=== PATIENT | male | born 1960 | race Caucasian/White ===

== ENCOUNTER 2016-12-07 03:24 | Inpatient (IN) | payer MEDICARE, MEDICAID ==
[2016-12-07] MEDS ORDERED: Albuterol/Ipratropium NEB.SOL* Albuterol 2.5 MG/Ipratropium 0.5 MG 3 ML INH ONE (03:47)
[2016-12-07 04:06] LABS: Hematocrit 29 % (42-52); Hemoglobin 9.7 g/dl (14.0-18.0); Mean Corpuscular HGB Conc 33 g/dl (31-36); Mean Corpuscular Hemoglobin 29 pg (27-31); Mean Corpuscular Volume 88 fL (80-94); Mean Platelet Volume 9 um3 (7.4-10.4); Red Blood Count 3.34 10^6/ul (4.0-5.4); Red Cell Distribution Width 15 % (10.5-15); White Blood Count 7.4 10^3/ul (3.5-10.8)
--- NOTE | 2016-12-07 04:07 | ED ---
Shortness of Breath - HPI Summary HPI Summary: Patient presents for evaluation of shortness of breath. Chronically wears 5 to 6 liters of oxygen, but the last few days has been febrile, more confused than normal, and requiring more oxygen. No allev factors attempted other than to increase the oxygen. History limited by chronic mental disability. - History of Current Complaint Chief Complaint: EDUpperRespComplaint Time Seen by Provider: 12/07/16 03:29 Hx Obtained From: Patient, Family/Lean Engineer, EMS Hx From Patient Unobtainable Due To: Altered Mental Status Onset/Duration: Gradual Onset - Allergy/Home Medications Allergies/Adverse Reactions: Allergies Allergy/AdvReac Type Severity Reaction Status Date / Time Levofloxacin Allergy Rash Verified 08/02/16 10:07 PMH/Surg Hx/FS Hx/Imm Hx Endocrine/Hematology History: Reports: Hx Anemia Denies: Hx Diabetes, Hx Thyroid Disease Cardiovascular History: Reports: Hx Deep Vein Thrombosis Denies: Hx Congestive Heart Failure, Hx Hypertension, Other Cardiovascular Problems/Disorders Respiratory History: Reports: Hx Pneumonia - frequent aspiration pna, Hx Seasonal Allergies - LORATADINE PO, Other Respiratory Problems/Disorders - Left lung deaeration; recurrent respiratory failure Denies: Hx Asthma, Hx Lung Cancer GI History: Reports: Hx Gastroesophageal Reflux Disease, Hx Obstructive Bowel, Other GI Disorders - Ogilivie syndrome, constipation, G-tube, ileus Denies: Hx Ulcer History: Denies: Hx Acute Renal Failure, Hx Renal Disease Musculoskeletal History: Reports: Hx Orthopedic Injury - hx ankle ORIF s/p fall and fracture, Other Musculoskeletal History - ankle fx contractures Sensory History: Denies: Hx Contacts or Glasses, Hx Hearing Aid Opthamlomology History: Denies: Hx Contacts or Glasses Neurological History: Reports: Hx Developmental Delay - profound intellectual disabilitiy, Other Neuro Impairments/Disorders - severe MR Denies: Hx Seizures Psychiatric History: Reports: Hx Anxiety, Hx of Violent Episodes Against Others - grabbing, pinching and scratching, Other Psychiatric Issues/Disorders - psychosis - Cancer History Cancer Type, Location and Year: L lung deaeration (opacification of L lung) Hx Chemotherapy: No Hx Radiation Therapy: No Hx Palliative Cancer Treatment: No - Surgical History Surgery Procedure, Year, and Place: PEG TUBE, MULT BOWEL OBSTRUCTIONS, ORIF L ankle Hx Anesthesia Reactions: No - Immunization History Date of Tetanus Vaccine: Unk Date of Influenza Vaccine: Unk Infectious Disease History: No Infectious Disease History: Reports: Hx of Known/Suspected MRSA, History Other Infectious Disease - positive for strep A Denies: Hx Hepatitis, Hx Human Immunodeficiency Virus (HIV), Traveled Outside the [place] in Last 30 Days - Family History Known Family History: Positive: Unknown - pt lives at assited living facility- no fam hx known - Social History Alcohol Use: None Substance Use Type: Reports: None Hx Tobacco Use: No Smoking Status (MU): Never Smoked Tobacco Have You Smoked in the Last Year: No Review of Systems - ROS Summary Review of Systems Summary: Limited by mental disability. All Other Systems Reviewed And Are Negative: Yes Physical Exam Triage Information Reviewed: Yes Vital Signs On Initial Exam: Initial Vitals Temp Pulse Resp BP Pulse Ox 98.1 F 94 22 117/56 90 12/07/16 03:28 12/07/16 03:28 12/07/16 03:28 12/07/16 03:28 12/07/16 03:28 Vital Signs Reviewed: Yes Completion Of Physical Exam Limited Due To: Other - Mental Disability Appearance: Positive: Well-Appearing, No Pain Distress, Well-Nourished Skin: Positive: Warm, Skin Color Reflects Adequate Perfusion, Dry Eyes: Positive: Normal, EOMI ENT: Positive: Normal ENT inspection, Hearing grossly normal Neck: Positive: Supple, Nontender Respiratory/Lung Sounds: Positive: Decreased Breath Sounds - Diffusely diminished breathsounds without focal crackles, wheezing. Cardiovascular: Positive: Normal, RRR, Pulses are Symmetrical in both Upper and Lower Extremities Abdomen Description: Positive: Nontender, No Organomegaly, Soft Musculoskeletal: Positive: Normal Neurological: Positive: Reflexes Intact, Facial Symmetry. Negative: Facial Droop Diagnostics - Vital Signs Vital Signs Temp Pulse Resp BP Pulse Ox 12/07/16 03:28 98.1 F 94 22 117/56 90 - Laboratory Result Diagrams: 12/07/16 03:40 12/07/16 03:40 Lab Statement: Any lab studies that have been ordered have been reviewed, and results considered in the medical decision making process. Course/Dx - Diagnoses Differential Diagnosis/HQI/PQRI: Positive: Bronchitis, Pneumonia, Other - Primary concern for pneumonia due to fever, confusion, increased hypoxia with behavior changes according to terminal supervisor medicare insurance specialist. Provider Diagnoses: Pneumonia, Hypoxia - Physician Notifications Instructed by Provider To: Admit As Inpatient - Critical Care Time Critical Care Time: 30-74 min Discharge - Discharge Plan Condition: Stable Disposition: ADMITTED TO [facility]
[2016-12-07 04:08] LABS: Add Diff/Slide Review? Slide Review Added
[2016-12-07 04:10] LABS: BUN/Creatinine Ratio 35.3 (8-20); Calcium 9.5 mg/dL (8.6-10.3); EGFR Non-African American 267.5 (>60); Potassium 3.5 mmol/L (3.5-5.0)
[2016-12-07 04:39] LABS: Eosinophils % 2 % (0-6); Immature Granulocytes 7 % (0-9); Neutrophil % 55 % (38-83); RBC Morphology Normal (Normal)
[2016-12-07] MEDS ORDERED: Iohexol 350* (CONTRAST) 500 ML MDV IV ONE (05:09)
[2016-12-07] MEDS ORDERED: Midazolam* 1 MG/ML 2 ML VIAL (2 MG) IV ONE (05:15)
[2016-12-07] MEDS ORDERED: Midazolam* 1 MG/ML 2 ML VIAL (2 MG) ONE (05:16)
[2016-12-07] MEDS ORDERED: NS 0.9% 1000 ML* 2,000 ML IV ONE (06:23)
[2016-12-07] MEDS ORDERED: Piperac/Tazob 3.375 gm in NS* 3.375 GM/100 ML BAG IVPB ONE (06:23)
[2016-12-07] MEDS ORDERED: PIPERACILLIN IVPB ONE (06:30)
[2016-12-07] MEDS ORDERED: NS 0.9% IVPB ONE (06:30)
[2016-12-07] MEDS ORDERED: TAZOBACTAM IVPB ONE (06:30)
[2016-12-07] MEDS ORDERED: Mupirocin 2% CREAM* 15 GM TOPICAL PRN (09:49)
[2016-12-07] MEDS ORDERED: Acetaminophen ADULT LIQ* 650 MG/20.3 ML UDC G TUBE PRN (09:49)
[2016-12-07] MEDS ORDERED: Sodium Phosphate ADULT ENEMA* 118 ml bottle PR PRN (09:49)
[2016-12-07] MEDS ORDERED: Bisacodyl SUPP* 10 MG SUPP PR PRN (09:49)
[2016-12-07] MEDS ORDERED: Magnesium Hydroxide LIQ* 30 ML UDC PEG TUBE PRN (09:49)
[2016-12-07] MEDS ORDERED: Zinc Oxide 20% OINT* 30 GM TUBE TOPICAL PRN (09:49)
[2016-12-07] MEDS ORDERED: NUTRITIONAL SUPPLEMENTS G TUBE SCH ×2 (10:00→14:00)
[2016-12-07] MEDS ORDERED: Piperac/Tazob 3.375 gm in NS* 3.375 GM/100 ML BAG IVPB SCH (10:00)
[2016-12-07] MEDS ORDERED: Mupirocin 2% OINT* TUBE TOPICAL PRN (10:07)
--- NOTE | 2016-12-07 10:42 | RAD ---
INDICATION: Hypoxia COMPARISON: CTA of the chest dated October 07, 2015 TECHNIQUE: Axial source images were acquired following the administration of 78 mL Omnipaque [address] angiographic technique. Coronal and sagittal reconstructed images were constructed and reviewed. FINDINGS: There are no filling defects in the right mainstem or more distal right lung pulmonary arteries. There is irregular filling defect beginning at the left mainstem pulmonary artery extending into the left upper and lower lobar arteries. There is little contrast filling seen in the more distal segments. This appearance could be due to pulmonary embolus or arterial blood mixing as a consequence of reduced arterial flow to a totally consolidated left lung. Similar to the 2014 CT examination there is complete consolidation of the left lung with calcified granulomas. There is infiltration involving the right lower lung as well as compressive atelectasis related to the patient's small right-sided pleural effusion. There is consolidation along the medial aspect of the right upper lobe. The heart is normal in size. There is no evidence of pericardial effusion. There is no evidence of aortic aneurysm or dissection. There is no mediastinal, hilar, or axillary lymphadenopathy. Degenerative changes of the thoracic spine include loss of intervertebral disc height. Limited views of the upper abdomen show no abnormalities. IMPRESSION: 1. Filling defect beginning in the right mainstem pulmonary artery extending into the lobar branches could represent large pulmonary embolus, or alternatively, mixing artifact due to attenuated arterial flow to the patient's chronically, almost completely consolidated left lung. 2. Again seen is consolidation of the left upper and lower lobes, although there is increased foci of air in the small and medium airways relative to the 1213 CT examination. 3. Patchy infiltrate seen in the right lower lobe in addition to a small right-sided pleural effusion. There is also consolidation involving the medial aspect of the right upper lobe. Any of these densities could represent pneumonia versus atelectasis.
--- NOTE | 2016-12-07 11:43 | RAD ---
INDICATION: Hypoxia COMPARISON: Most recent comparison chest x-rays dated September 24, 2016 TECHNIQUE: PA and lateral views of the chest were obtained. FINDINGS: There is complete opacification of the left lung. There is density obscuring the right lung base. There is elevation of the bilateral diaphragm worse in the left than the right. Dilated loops of air-filled bowel beneath the left hemidiaphragm measure up to 9.8 cm in diameter. IMPRESSION: 1. COMPLETE CONSOLIDATION OF THE LEFT LUNG IS UNCHANGED FROM THE PREVIOUS CHEST X-RAY. 2. THERE IS WORSENING AERATION OF THE RIGHT LUNG INCLUDING DENSITY OBSCURING THE RIGHT LUNG BASE AND RIGHT HEMIDIAPHRAGM. 3. PATHOLOGICALLY DILATED LOOPS OF COLON MEASURE UP TO 9.8 CM IN DIAMETER SIMILAR IN APPEARANCE TO THE PREVIOUS CHEST X-RAY.
[2016-12-07] MEDS: Piperac/Tazob 3.375 gm in NS* 3.375 GM/100 ML BAG IVPB SCH ×2 (12:16→19:31)
[2016-12-07] MEDS: Albuterol/Ipratropium NEB.SOL* Albuterol 2.5 MG/Ipratropium 0.5 MG 3 ML INH SCH ×2 (12:56→20:30)
[2016-12-07] MEDS ORDERED: Zinc Oxide 16% PASTE* (Butt Paste) 1 TUBE TOPICAL PRN (13:09)
[2016-12-07] MEDS: Valproic Acid LIQ(*) 250 MG/5 ML UDC G TUBE SCH ×2 (13:54→21:07)
[2016-12-07] MEDS: Rivaroxaban TAB(*) 20 MG TAB PO SCH (13:54)
[2016-12-07] MEDS ORDERED: PROTEIN G TUBE SCH (14:00)
--- NOTE | 2016-12-07 18:54 | HP ---
HISTORY AND PHYSICAL: DATE OF ADMISSION: 12/07/16 TIME OF EVALUATION: 9 a.m. PRIMARY CARE PROVIDER: Dr. Easton Dooley. CHIEF COMPLAINT: "His oxygen was low" as per facility switchboard operator. HISTORY OF PRESENT ILLNESS: Mr. Kinsey is a 56-year-old male with a past medical history of severe intellectual developmental delay, recurrent aspiration pneumonia, chronic left lung atelectasis, iron deficiency anemia, psychosis, rhinitis, asthma, chronic respiratory failure, on 5 L of oxygen at baseline, chronic constipation, Bethlehem syndrome, bilateral DVTs in 2014, who was brought in to the emergency room due to low oxygen levels. The patient is nonverbal and the history is obtained from his switchboard operator at bedside. She states that yesterday during the day, she noticed that his oxygen level was dropping, so they had increased his supplemental oxygen to 6 L. Later on, it was improved and they returned him to 5 L and apparently this happened multiple times during the day. He was also noted to be febrile with a temperature up to 102. He was breathing faster, coughing, and when they increased his oxygen to 6 liters last night, he did not respond, he continued to have a low oxygen saturation, so that prompted an emergency room visit overnight. This appears to be similar to his prior presentations in the past with pneumonia. His caregiver states that the patient has a large bowel movement yesterday and his bowel regimen seems to be working well. PAST MEDICAL HISTORY: 1. Severe intellectual developmental delay. He is nonverbal, has dysphagia and is status post PEG tube placement. 2. Recurrent episodes of aspiration pneumonia. 3. Atelectasis of the left lung, that is chronic. 4. Iron deficiency anemia. 5. Psychosis. 6. Rhinitis. 7. Asthma. 8. Chronic respiratory failure, on home O2 at 5 L. 9. Chronic constipation. 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 11. History of bilateral DVTs in 2014 and the patient is on Xarelto. MEDICATION LIST: 1. Acetaminophen 650 mg via PEG q.6 hours p.r.n. pain or fever. 2. Albuterol/ipratropium 1 nebulized q.6 hours while awake. 3. Vitamin C 500 mg G-tube b.i.d. 4. Benztropine 1 mg G-tube b.i.d. 5. Betamethasone 0.05% topical b.i.d. as needed for rash. 6. Bisacodyl 10 mg per rectum daily p.r.n. constipation. 7. Calcium carbonate 5 mL via G-tube daily. 8. Debrox 6.5% two drops to both ears on Wednesdays. 9. Chlorpromazine 400 mg G-tube at bedtime. 10. Desitin topical b.i.d. as needed for rash. 11. Loratadine 10 mg G-tube daily. 12. Milk of magnesia 30 mL G-tube daily as needed for constipation. 13. Mupirocin 2% topical b.i.d. as needed for rash. 14. Zyprexa 10 mg G-tube daily. 15. Olanzapine 5 mg G-tube in the morning and 10 mg G-tube in the evening. 16. MiraLAX 34 g G-tube daily. 17. Resource Beneprotein 1 dose via G-tube t.i.d. 18. Rivaroxaban 20 mg via G-tube daily. 19. Fleet enema 1 enema per rectum q.3 days as needed for constipation. 20. Valproic acid 10 mL G-tube t.i.d. 21. Jevity 1.5, 2 cans via G-tube at 0800 hours and 1400 hours and 1 can at 2000 hours. ALLERGIES: LEVOFLOXACIN, the patient experienced rash. FAMILY HISTORY: Not obtainable from this nonverbal patient. SOCIAL HISTORY: Unable to obtain due to the patient's severe mental retardation. Surrogate decision maker is Spring Bacon from [facility], phone [phone]. On his last admission on July 2016, the patient was seen by Palliative Care and he was seen by the Surrogate Decision Making Committee and he was made DNR and do not intubate and this is reflected on his current MOLST. REVIEW OF SYSTEMS: Unable to obtain from this nonverbal patient. PHYSICAL EXAMINATION GENERAL: The patient is a middle-aged male, lying in bed, in no acute distress. VITAL SIGNS: Temperature is 98.3, heart rate is 87, respiratory rate is 20, oxygen saturation is 92% on 5 L nasal cannula, blood pressure is 117/57. HEENT: Pupils are equal. Moist mucous membranes. CHEST: Breath sounds present bilaterally, decreased on the left, no added sounds on the right. CVS: Normal S1, S2. Regular rate and rhythm. ABDOMEN: Distended, soft, nontender. Bowel sounds are present. EXTREMITIES: There is mild bilateral lower extremity pitting edema. NEUROLOGIC: He is alert, awake, oriented x3. Interacting with examiner, nonverbal. DIAGNOSTIC STUDIES/LAB DATA: The patient had a CBC that showed WBC of 7.4, hemoglobin of 9.7, hematocrit of 29, platelets of 181 with 64% neutrophils, 19% lymphocytes, and 70% monocytes. Chemistry showed a sodium of 131, potassium of 3.5, chloride of 93, bicarb of 36, BUN of 12, creatinine of 0.3, glucose of 107 , calcium 9.5, lactic acid 1.1. Influenza A and B were negative. Chest x-ray was not officially read yet, but it shows left lung atelectasis with no significant change when compared to his prior one. CTA of the chest was performed and preliminary report is of near complete collapse left lung with fluid secretions in the left bronchial tree similar to a CTA from September 2015. Unlike to prior exam, small amounts of air remained in distal bronchi or within cystic spaces through the lung parenchyma other than being confined to the left apex. Underlying left lung mass or infection not excluded, but volume loss is predominantly atelectatic process. There are multiple calcified granulomas in the left lung base. Relative hypoattenuation in the left lower lobe artery and branches, it is also similar to prior exam and could represent contrast mixing artifact versus a recurrent PE. Followup exam may be helpful to confirm or exclude PE. A small right pleural effusion increased, probable compressive atelectasis of the right lung base with pneumonia felt less likely. This area appeared more consolidated on prior exam , consistent with a prior air space filling process such as pneumonia. Focal atelectasis, scarring more likely than nodule in the right upper lobe, persistent mediastinal lymphadenopathy, and chronic fracture of the distal right clavicle. ASSESSMENT AND PLAN: Mr. Kinsey is a 56-year-old male with a past medical history of severe intellectual developmental delay, recurrent aspiration pneumonia, left lung atelectasis, iron deficiency anemia, psychosis, rhinitis, asthma, chronic respiratory failure, on 5 L of oxygen at home, chronic constipation, Rivas syndrome, bilateral deep venous thrombosis, who presents to the emergency room with reports of fever, worsening of his oxygen saturation , requiring titration of his home O2, admitted with possible pneumonia. 1. [id number] respiratory failure. The patient likely has another episode of aspiration pneumonia to explain his hypoxia. We are going to titrate his oxygen to try and keep his saturation around 90%. 2. Aspiration pneumonia. This has been a chronic issue for this patient. He will be started on Zosyn and we are going to follow his cultures. 3. Possible pulmonary embolism. The patient has known deep venous thrombosis and is on Xarelto, but the preliminary report of his CTA questioned the possibility of pulmonary embolism. I am going to check an echocardiogram looking for signs of increased pressure of the right ventricle, but I believe we should not repeat a CTA for at least 48 hours. The patient does have more lower extremity edema at this point than when I last saw him in July, so I am going to check bilateral lower extremity Dopplers. 4. Constipation, Bethlehem syndrome. We will continue his robust bowel regimen. 5. Psychosis. We will continue Cogentin, Thorazine, and Zyprexa. 6. DVT prophylaxis. The patient has a score of 5 on a DVT Prophylaxis Risk Assessment Guide and he is on Xarelto. 7. Code status. The patient is do not resuscitate and do not intubate. TIME SPENT: Approximately 65 minutes was spent with staff interview, the patient's physical examination, medical records review to complete the admission , more than half this time was spent [id number] with the patient and coordination of care. CC: Dr. Easton Dooley * [id number]/CPS #: [id number] LUCAS
--- NOTE | 2016-12-07 20:20 | RAD ---
HISTORY: Bilateral lower extremity swelling TECHNIQUE: Multiple transverse and longitudinal ultrasound images were obtained of the veins of the bilateral lower extremities using grayscale, color Doppler, and spectral Doppler imaging with and without compression and with augmentation. FINDINGS: VEINS: The common femoral vein, deep femoral vein, femoral vein and popliteal vein are compressible throughout their course, with normal flow on color Doppler imaging and normal response to augmentation on spectral Doppler imaging. The peroneal veins are not visualized. SOFT TISSUES: Grossly normal. No large popliteal fossa cyst was identified. IMPRESSION: No sonographic evidence of deep vein thrombosis.
[2016-12-07] MEDS: Ascorbic Acid TAB* 500 MG G TUBE SCH (21:07)
[2016-12-07] MEDS: chlorproMAZINE TAB* 200 MG G TUBE SCH (21:07)
[2016-12-07] MEDS: Benztropine TAB* 1 MG SCH (21:07)
[2016-12-07] MEDS: OLANzapine TAB*ODT* 10 MG TAB PO SCH (21:07)
[2016-12-07] MEDS: NS 0.9% w/ 40 Meq KCL 1000 ML* 1,000 ML IV SCH (22:02)
[2016-12-08] MEDS: Albuterol/Ipratropium NEB.SOL* Albuterol 2.5 MG/Ipratropium 0.5 MG 3 ML INH SCH ×5 (02:49→20:21)
[2016-12-08] MEDS: Piperac/Tazob 3.375 gm in NS* 3.375 GM/100 ML BAG IVPB SCH ×3 (03:32→20:33)
[2016-12-08] MEDS: NS 0.9% w/ 40 Meq KCL 1000 ML* 1,000 ML IV SCH (06:14)
[2016-12-08 09:30] LABS: Hematocrit 30 % (42-52); Hemoglobin 9.8 g/dl (14.0-18.0); Mean Corpuscular HGB Conc 33 g/dl (31-36); Mean Corpuscular Hemoglobin 29 pg (27-31); Mean Corpuscular Volume 89 fL (80-94); Mean Platelet Volume 8 um3 (7.4-10.4); Red Blood Count 3.36 10^6/ul (4.0-5.4); Red Cell Distribution Width 15 % (10.5-15); White Blood Count 4.2 10^3/ul (3.5-10.8)
[2016-12-08 09:46] LABS: BUN/Creatinine Ratio 17.1 (8-20); Calcium 9.2 mg/dL (8.6-10.3); EGFR African American 277.1 (>60); EGFR Non-African American 215.5 (>60); Potassium 4.6 mmol/L (3.5-5.0)
[2016-12-08] MEDS: Ascorbic Acid TAB* 500 MG G TUBE SCH ×2 (10:19→20:42)
[2016-12-08] MEDS: LORATADINE 10 MG G TUBE SCH (10:19)
[2016-12-08] MEDS: OLANzapine TAB*ODT* 5 MG SCH (10:19)
[2016-12-08] MEDS: Calcium Carbonate LIQ* 1,250 MG/5 ML UDC G TUBE SCH (10:19)
[2016-12-08] MEDS: Polyethylene Glycol 3350* 17 GM PACKET G TUBE SCH (10:19)
[2016-12-08] MEDS: Rivaroxaban TAB(*) 20 MG TAB PO SCH (10:20)
[2016-12-08] MEDS: Benztropine TAB* 1 MG SCH ×2 (10:20→20:43)
--- NOTE | 2016-12-08 12:25 | ECHO ---
Patient: SHANE MALDONADO [facility] Rec#: [id number] : 1960 Date: 12/08/2016 Age: 56y Height: 175.26 cm / 69.0 in Weight: 95.25 kg / 209.9 lbs Sex: M BSA: 2.11 Room#: 332 Admit Date#: 12/07/2016 Type: Inpatient Referring: Jasmyne Amador MD Reading: Suleiman Payne MD Sheet Rock Applicator: Gabrielle Campos CHARU CC: Easton Dooley MD Transthoracic Echocardiogram Indication: Resp Abn. BP: 132/62 HR: 83 Rhythm: NSR Findings History: Mental retardation,recurrent episodes of pneumonia,nonverbal,dysphasia, s/p PEG tube insert,psychosis,asthma,chronic respiratory failure. Technical Comments: The study was technically limited due to the patient's inability to lay in the left lateral decubitus position. Completed at 1200. Left Ventricle: Posterior wall hypertrophy is observed. Global left ventricular wall motion and contractility are within normal limits. There is normal left ventricular systolic function. The estimated ejection fraction is 55-60%. The patient was unable to perform a Valsalva maneuver. Left Atrium: The left atrium is moderately dilated. Right Ventricle: The right ventricle is mildly dilated. The right ventricular global systolic function is mildly to moderately reduced. Right Atrium: The right atrium is moderately dilated. Aortic Valve: The aortic valve is trileaflet. There is a trace of aortic regurgitation. There is no evidence of aortic stenosis. Mitral Valve: The mitral valve leaflets are mildly thickened. There is mild mitral regurgitation. There is no evidence of mitral stenosis. Tricuspid Valve: The tricuspid valve leaflets are normal. There is mild tricuspid regurgitation. There is evidence of mild pulmonary hypertension. There is no tricuspid stenosis. Pulmonic Valve: The pulmonic valve appears normal. There is mild pulmonic regurgitation. There is no pulmonic stenosis. Pericardium: A pericardial fat pad is visualized. Aorta: There is no dilatation of the ascending aorta. There is no dilatation of the aortic arch. There is mild dilatation of the aortic root. Pulmonary Artery: The main pulmonary artery appears normal. Venous: The venous system is not well visualized. Summary: There are no significant changes when compared to the previous study done on 12/10/12 Conclusions Global left ventricular wall motion and contractility are within normal limits. There is normal left ventricular systolic function. The estimated ejection fraction is 55-60%. The right ventricular global systolic function is mildly to moderately reduced. The right atrium is moderately dilated. There is a trace of aortic regurgitation. There is no evidence of aortic stenosis. There is mild mitral regurgitation. There is no evidence of mitral stenosis. There is mild tricuspid regurgitation. There is evidence of mild pulmonary hypertension. There are no significant changes when compared to the previous study done on 12/10/12 Measurements Name Value Normal Range RVIDd (AP) 2D 3.5 cm (0.9 - 2.6) RVDdMajor (2D) 4.8 cm (2.2 - 4.4) RAd ISD 4CH 5.9 cm (3.4 - 4.9) RA (A4C)W 5.7 cm (2.9 - 4.6) IVSd (2D) 1 cm (0.6 - 1) LVPWd (2D) 1.2 cm (0.6 - 1) LVIDd (2D) 4.7 cm (3.6 - 5.4) LVIDs (2D) 3.2 cm - LV FS (2D) 33 % (25 - 45) Aortic Annulus 2.4 cm (1.4 - 2.6) Ao root diameter (2D) 3.7 cm (2.1 - 3.5) Ascending Ao 2.7 cm (2.1 - 3.4) Aortic arch 3.1 cm (1.8 - 3.4) Descending Ao 0.8 cm - LA dimension (AP) 2D 4.7 cm (2.3 - 3.8) LAd ISD 4CH 5.8 cm (2.9 - 5.3) LA ISD 4CH W 5.2 cm (2.5 - 4.5) Name Value Normal Range LA ESV SP 4CH (A/L) 50 ml - LA ESV SP 2CH (A/L) 28 ml - LA ESV BP (A/L) 45 ml - LA ESV BP (A/L) index 21.47 ml/m2 - LA ESV SP 4CH (MOD) 47 ml - LA ESV SP 2CH (MOD) 27 ml - Name Value Normal Range MV E-wave Vmax 1.2 m/sec - MV deceleration time 183 msec - MV A-wave Vmax 1 m/sec - MV E:A ratio 1.1 ratio - LV septal e' Vmax 0.09 m/sec - LV lateral e' Vmax 0.11 m/sec - LV E:e' septal ratio 13.33 ratio - LV E:e' lateral ratio 10.9 ratio - Name Value Normal Range AV Vmax 1.1 m/sec - AV VTI 22.7 cm - AV peak gradient 4.89 mmHg - AV mean gradient 2.47 mmHg - LVOT Vmax 1 m/sec - LVOT VTI 20.4 cm - LVOT peak gradient 3.65 mmHg - LVOT mean gradient 1.71 mmHg - Name Value Normal Range TR Vmax 3 m/sec - TR peak gradient 36 mmHg - RAP 8 mmHg - RVSP 44 mmHg - Name Value Normal Range PV Vmax 1 m/sec - PV peak gradient 4 mmHg -
--- NOTE | 2016-12-08 12:47 | PN ---
Subjective Date of Service: 12/08/16 Interval History: Per nurse patient has been awake all day and recently fell asleep. He slept through my exam only opening his eyes slightly then fell back asleep. [facility] aide is at bedside and states this is his normal. Small BM this morning per nursing. Pt is on 5L [place] which is his baseline oxygen Objective Active Medications: Acetaminophen (Tylenol Adult Liq*) 650 mg G TUBE Q6H PRN PRN Reason: DISCOMFORT Albuterol/Ipratropium (Duoneb Neb.Jany*) 1 neb INH [id number] AWAKE [facility] Last Admin: 12/08/16 10:07 Dose: Not Given Ascorbic Acid (Vitamin C Tab*) 500 mg G TUBE BID [facility] Last Admin: 12/08/16 10:19 Dose: 500 mg Benztropine Mesylate (Cogentin Tab*) 1 mg .SEE ORDER BID [facility] Last Admin: 12/08/16 10:20 Dose: 1 mg Bisacodyl (Dulcolax Supp*) 10 mg KS DAILY PRN PRN Reason: CONSTIPATION Calcium Carbonate (Calcium Carbonate Liq*) 1,250 mg G TUBE DAILY [facility] Last Admin: 12/08/16 10:19 Dose: 1,250 mg Chlorpromazine HCl (Thorazine Tab*) 400 mg G TUBE BEDTIME [facility] Last Admin: 12/07/16 21:07 Dose: 400 mg Potassium Chloride/Sodium Chloride (Ns 0.9% W/ 40 Meq Kcl 1000 Ml*) 1,000 mls @ 125 mls/hr IV PER RATE [facility] Last Admin: 12/08/16 06:14 Dose: 125 mls/hr Piperacillin Sod/Tazobactam Sod (Zosyn 3.375 Gm In Ns Premix*) 3.375 gm in 100 mls @ 25 mls/hr IVPB Q8H [facility] Last Admin: 12/08/16 03:32 Dose: 25 mls/hr Loratadine (Claritin Tab(Nf)) 10 mg G TUBE DAILY [facility] Last Admin: 12/08/16 10:19 Dose: 10 mg Magnesium Hydroxide (Milk Of Magnesia Liq*) 30 ml PEG TUBE 0900 PRN PRN Reason: CONSTIPATION Mupirocin (Bactroban 2 % Oint*) 1 applic TOPICAL BID PRN PRN Reason: WOUND CARE Olanzapine (Zyprexa * Tab Odt) 5 mg .SEE ORDER QAM [facility] Last Admin: 12/08/16 10:19 Dose: 5 mg Olanzapine (Zyprexa *Odt*) 10 mg PO 1999 [facility] Last Admin: 12/07/16 21:07 Dose: 10 mg Polyethylene Glycol/Electrolytes (Miralax*) 34 gm G TUBE DAILY [facility] Last Admin: 12/08/16 10:19 Dose: 34 gm Rivaroxaban (Xarelto (*)) 20 mg PO DAILY [facility] Last Admin: 12/08/16 10:20 Dose: 20 mg Sodium Biphosphate/Sodium Phosphate (Fleet Enema*) 1 bottle KS Q3D PRN PRN Reason: CONSTIPATION Valproic Acid (Depakene Liq(*)) 500 mg G TUBE TID [facility] Last Admin: 12/07/16 21:07 Dose: 500 mg Zinc Oxide (Noah's Butt Paste) 1 applic TOPICAL BID PRN PRN Reason: RASH Vital Signs 12/07/16 12/07/16 12/07/16 12:55 12:58 14:45 Temperature Pulse Rate 85 Respiratory 17 18 Rate Blood Pressure 113/80 (mmHg) O2 Sat by Pulse 97 Oximetry 12/07/16 12/07/16 12/07/16 18:04 19:44 20:00 Temperature 98.1 F 99.5 F Pulse Rate 92 93 Respiratory 20 16 18 Rate Blood Pressure 114/52 130/60 (mmHg) O2 Sat by Pulse 92 94 Oximetry 12/08/16 12/08/16 12/08/16 00:01 03:44 06:53 Temperature 97.7 F 98.3 F 98.1 F Pulse Rate 86 84 87 Respiratory 18 16 20 Rate Blood Pressure 130/57 132/62 152/77 (mmHg) O2 Sat by Pulse 96 97 84 Oximetry 12/08/16 12/08/16 12/08/16 07:20 08:00 11:43 Temperature 97.8 F Pulse Rate 81 Respiratory 20 20 Rate Blood Pressure 135/63 (mmHg) O2 Sat by Pulse 97 100 Oximetry Oxygen Devices in Use Now: Nasal Cannula - 5LNC Appearance: 56 yo parminder with MR laying in bed resting with eyes closed, opens eyes when promted then falls back asleep, NAD Eyes: No Scleral Icterus, PERRLA Ears/Nose/Mouth/Throat: Mucous Membranes Moist, - - poor denition Neck: NL Appearance and Movements; NL JVP Respiratory: Symmetrical Chest Expansion and Respiratory Effort, - - diminished B/L, scattered rhonhi in right lung Cardiovascular: NL Sounds; No Murmurs; No JVD, RRR, No Edema Abdominal: - - large, round, distended abdomen, soft, nontender Extremities: No Edema Skin: No Rash or Ulcers, No Nodules or Sclerosis Neurological: - - alert Lines/Tubes/Other Access: Clean, Dry and Intact Peripheral IV Nutrition: Taking PO's Result Diagrams: 12/08/16 09:19 12/08/16 09:19 Microbiology and Other Data: Microbiology 12/07/16 08:05 Nasal Screen MRSA (PCR)(MICHELLE) - Final Nasal Mrsa Positive Assess/Plan/Problems-Billing Assessment: Mr. Kinsey is a 56 yo male with PMH of severe intellectual delay, recurrent aspiration pneumonia, chornic left atelectasis, iron deficiency anemia , psychosis, chronic constipation, hx of b/l DVTs, asthma, chronic respiratory failure on 5L of oxygen at baseline who was brought to the ED for "low oxygen levels" - Patient Problems (1) Acute and chronic respiratory failure with hypoxia Comment: - suspect secondary to aspiration pneumonia, now back to home oxygen 5L [place] - CTA chest showing possible arterial filling defect, spoke with radiology who thinks this is attenuation from blood mixing and creating an appearance of thrombus, the pt has had this noted in the past but appears a little larger on this scan. TTE showing right ventricular function is mildly-mod reduced but no significant changes from previous echo. Suspect this is not a PE as he is clinically appears to have aspiration pneumonia. Will discuss with heme/onc. plan to continue xarelto (2) Aspiration pneumonia Comment: - Hx of chronic aspiration for years with multiple episodes of aspiration pneumonia. He had a PEG tube placed but continues to aspirate with ororpharyngal secretions. - continue zosyn - Continue chest PT Q4H when awake. (3) Constipation Comment: -[place] syndrome. Continue strict bowel regimen. (4) Psychosis Comment: - Stable- continue cogentin, zyprexa, and thorazine. (5) DNR (do not resuscitate) Comment: MOLST completed on chart (6) DVT (deep venous thrombosis) Comment: - The patient was diagnosed with B/L DVTs 08/2015 - continue Xarelto.
[2016-12-08] MEDS: Valproic Acid LIQ(*) 250 MG/5 ML UDC G TUBE SCH ×3 (12:55→20:50)
[2016-12-08] MEDS ORDERED: Simethicone LIQ* 40 MG/0.6 ML UD ORAL SYRINGE PO PRN (16:40)
[2016-12-08] MEDS: Simethicone TAB* 80 MG TAB.CHEW PO SCH ×2 (18:31→20:42)
[2016-12-08] MEDS: chlorproMAZINE TAB* 200 MG G TUBE SCH (20:42)
[2016-12-08] MEDS: OLANzapine TAB*ODT* 10 MG TAB PO SCH (20:42)
[2016-12-09] MEDS: Albuterol/Ipratropium NEB.SOL* Albuterol 2.5 MG/Ipratropium 0.5 MG 3 ML INH SCH ×2 (01:23→07:32)
[2016-12-09] MEDS: Piperac/Tazob 3.375 gm in NS* 3.375 GM/100 ML BAG IVPB SCH ×2 (03:57→11:38)
[2016-12-09 06:05] LABS: Hematocrit 29 % (42-52); Hemoglobin 9.8 g/dl (14.0-18.0); Mean Corpuscular HGB Conc 34 g/dl (31-36); Mean Corpuscular Hemoglobin 29 pg (27-31); Mean Corpuscular Volume 88 fL (80-94); Mean Platelet Volume 8 um3 (7.4-10.4); Red Blood Count 3.34 10^6/ul (4.0-5.4); Red Cell Distribution Width 15 % (10.5-15); White Blood Count 4.9 10^3/ul (3.5-10.8)
[2016-12-09 06:21] LABS: BUN/Creatinine Ratio 26.2 (8-20); Calcium 9.1 mg/dL (8.6-10.3); EGFR African American 269.5 (>60); EGFR Non-African American 209.6 (>60); Potassium 4.5 mmol/L (3.5-5.0)
[2016-12-09 08:24] VITALS: BP 131/63
[2016-12-09] MEDS ORDERED: NS 0.9% 1000 ML* 1,000 ML IV SCH (08:30)
[2016-12-09] MEDS ORDERED: Saliva Substitute (NF) 1 SPRAY BTL MT SCH (09:00)
[2016-12-09] MEDS: Rivaroxaban TAB(*) 20 MG TAB PO SCH (09:40)
[2016-12-09] MEDS: LORATADINE 10 MG G TUBE SCH (09:40)
[2016-12-09] MEDS: OLANzapine TAB*ODT* 5 MG SCH (09:40)
[2016-12-09] MEDS: Calcium Carbonate LIQ* 1,250 MG/5 ML UDC G TUBE SCH (09:40)
[2016-12-09] MEDS: Ascorbic Acid TAB* 500 MG G TUBE SCH (09:40)
[2016-12-09] MEDS: Benztropine TAB* 1 MG SCH (09:40)
[2016-12-09] MEDS: Simethicone TAB* 80 MG TAB.CHEW PO SCH (09:40)
[2016-12-09] MEDS: Valproic Acid LIQ(*) 250 MG/5 ML UDC G TUBE SCH (09:40)
[2016-12-09] MEDS: Polyethylene Glycol 3350* 17 GM PACKET G TUBE SCH (09:41)
--- NOTE | 2016-12-09 10:35 | DCNOTE ---
Subjective Date of Service: 12/09/16 Interval History: Patient is awake and alert this morning, some interaction. NAD. Appears comfortable. per [place] BRADLEY he appears at his baseline. no increased O2 requirements. 2 large BMs overnight. Tolerating tube feedings. No fevers or chills. Per nursing staff he got OOB with 2 assist and gait belt and used commode. Objective Active Medications: Acetaminophen (Tylenol Adult Liq*) 650 mg G TUBE Q6H PRN PRN Reason: DISCOMFORT Albuterol/Ipratropium (Duoneb Neb.Jany*) 1 neb INH [id number] AWAKE [facility] Last Admin: 12/09/16 07:32 Dose: 1 neb Ascorbic Acid (Vitamin C Tab*) 500 mg G TUBE BID [facility] Last Admin: 12/09/16 09:40 Dose: 500 mg Benztropine Mesylate (Cogentin Tab*) 1 mg .SEE ORDER BID [facility] Last Admin: 12/09/16 09:40 Dose: 1 mg Bisacodyl (Dulcolax Supp*) 10 mg GA DAILY PRN PRN Reason: CONSTIPATION Calcium Carbonate (Calcium Carbonate Liq*) 1,250 mg G TUBE DAILY [facility] Last Admin: 12/09/16 09:40 Dose: 1,250 mg Chlorpromazine HCl (Thorazine Tab*) 400 mg G TUBE BEDTIME [facility] Last Admin: 12/08/16 20:42 Dose: 400 mg Piperacillin Sod/Tazobactam Sod (Zosyn 3.375 Gm In Ns Premix*) 3.375 gm in 100 mls @ 25 mls/hr IVPB Q8H [facility] Last Admin: 12/09/16 03:57 Dose: 25 mls/hr Loratadine (Claritin Tab(Nf)) 10 mg G TUBE DAILY [facility] Last Admin: 12/09/16 09:40 Dose: 10 mg Magnesium Hydroxide (Milk Of Magnesia Liq*) 30 ml PEG TUBE 0900 PRN PRN Reason: CONSTIPATION Last Admin: 12/08/16 15:47 Dose: 30 ml Mupirocin (Bactroban 2 % Oint*) 1 applic TOPICAL BID PRN PRN Reason: WOUND CARE Olanzapine (Zyprexa * Tab Odt) 5 mg .SEE ORDER QAM [facility] Last Admin: 12/09/16 09:40 Dose: 5 mg Olanzapine (Zyprexa *Odt*) 10 mg PO 2000 [facility] Last Admin: 12/08/16 20:42 Dose: 10 mg Polyethylene Glycol/Electrolytes (Miralax*) 34 gm G TUBE DAILY [facility] Last Admin: 12/09/16 09:41 Dose: Not Given Rivaroxaban (Xarelto (*)) 20 mg PO DAILY [facility] Last Admin: 12/09/16 09:40 Dose: 20 mg Saliva Substitute (Biotene Moisturizing Mouth (Nf)) 1 spray MT DAILY [facility] PRN Reason: Protocol Last Admin: 12/09/16 10:20 Dose: Not Given Simethicone (Mylicon*) 80 mg PO TID [facility] Last Admin: 12/09/16 09:40 Dose: 80 mg Sodium Biphosphate/Sodium Phosphate (Fleet Enema*) 1 bottle GA Q3D PRN PRN Reason: CONSTIPATION Last Admin: 12/08/16 18:31 Dose: 1 bottle Valproic Acid (Depakene Liq(*)) 500 mg G TUBE TID [facility] Last Admin: 12/09/16 09:40 Dose: 500 mg Zinc Oxide (Noah's Butt Paste) 1 applic TOPICAL BID PRN PRN Reason: RASH Vital Signs 12/08/16 12/08/16 12/08/16 11:43 15:45 16:34 Temperature 97.8 F 97.2 F Pulse Rate 81 79 85 Respiratory 20 24 18 Rate Blood Pressure 135/63 127/68 (mmHg) O2 Sat by Pulse 100 94 98 Oximetry 12/08/16 12/08/16 12/08/16 19:51 20:00 20:22 Temperature 97.9 F Pulse Rate 90 90 Respiratory 18 18 Rate Blood Pressure 138/63 (mmHg) O2 Sat by Pulse 94 98 Oximetry 12/08/16 12/08/16 12/09/16 20:29 23:52 04:01 Temperature 97.2 F 98.1 F Pulse Rate 90 82 82 Respiratory 16 16 Rate Blood Pressure 117/63 119/58 (mmHg) O2 Sat by Pulse 98 97 97 Oximetry 12/09/16 12/09/16 12/09/16 07:35 07:38 08:03 Temperature 98.5 F Pulse Rate 88 87 Respiratory 16 17 20 Rate Blood Pressure 131/63 (mmHg) O2 Sat by Pulse 96 94 Oximetry Oxygen Devices in Use Now: Nasal Cannula - 5LNC Appearance: 56 yo MR male sitting up in bed awake and alert in NAD - interacting Eyes: No Scleral Icterus, PERRLA Ears/Nose/Mouth/Throat: Mucous Membranes Moist, - - poor dentition Neck: NL Appearance and Movements; NL JVP, Trachea Midline Respiratory: Symmetrical Chest Expansion and Respiratory Effort, Clear to Auscultation Cardiovascular: NL Sounds; No Murmurs; No JVD, RRR, No Edema Abdominal: NL Sounds; No Tenderness; No Distention, - - big, round, soft. NL BS , no guarding. Extremities: No Edema, No Clubbing, Cyanosis Skin: No Rash or Ulcers, No Nodules or Sclerosis Neurological: - - alert Lines/Tubes/Other Access: Clean, Dry and Intact Peripheral IV Nutrition: Taking PO's Result Diagrams: 12/09/16 05:40 12/09/16 05:40 Microbiology and Other Data: Microbiology 12/07/16 08:05 Nasal Screen MRSA (PCR)(MICHELLE) - Final Nasal Mrsa Positive Assess/Plan/Problems-Billing Assessment: Mr. Kinsey is a 56 yo male with PMH of severe intellectual delay, recurrent aspiration pneumonia, chornic left atelectasis, iron deficiency anemia , psychosis, chronic constipation, hx of b/l DVTs, asthma, chronic respiratory failure on 5L of oxygen at baseline who was brought to the ED for "low oxygen levels" - Patient Problems (1) Acute and chronic respiratory failure with hypoxia Comment: - suspect secondary to aspiration pneumonia/pneumonitis, back to home oxygen 5L NC on admisison - no increased oxygen requirements throughout hospitalization - CTA chest showing possible arterial filling defect, spoke with radiology who thinks this is attenuation from blood mixing and creating an appearance of thrombus, the pt has had this noted in the past but appears a little larger on this scan. Low suspicion for PE. Reveiwed with Dr. Stockton (side consult) who agrees there is a low suspicion of xarelto failure with the 2015 DVT now not noted on repeat dopple LE this admisison. TTE showing right ventricular function is mildly-mod reduced but no significant changes from previous echo. plan to continue xarelto Stable for DC to home. Plan for Augmentin at DC, f/u with PCP. (2) Aspiration pneumonia Comment: - Hx of chronic aspiration for years with multiple episodes of aspiration pneumonia. He had a PEG tube placed but continues to aspirate with ororpharyngal secretions. - DC home on augmentin (3) Constipation Comment: -[place] syndrome. Continue strict bowel regimen. 2 large BM overnight (4) Psychosis Comment: - Stable- continue cogentin, zyprexa, and thorazine. (5) DNR (do not resuscitate) Comment: MOLST completed on chart (6) DVT (deep venous thrombosis) Comment: - The patient was diagnosed with B/L DVTs 08/2015 which are now resolved- continue Xarelto. Status and Disposition: stable for DC to back to [facility]
--- NOTE | 2016-12-10 20:30 | DS ---
DISCHARGE SUMMARY: DATE OF ADMISSION: 12/07/16 DATE OF DISCHARGE: 12/09/16 PROVIDER: Marlee Borja NP ATTENDING PHYSICIAN: Dr. Branham * (report dictated by Marlee Borja NP). PRIMARY CARE PROVIDER: Dr. Easton Dooley. PRIMARY DIAGNOSES: 1. Hypoxia thought to be secondary to aspiration. 2. Possible aspiration pneumonitis/pneumonia. 3. Severe intellectual developmental delay, who is nonverbal, has had significant dysphagia and is status post PEG tube placement. SECONDARY DIAGNOSES: 1. Chronic constipation with [place] syndrome. 2. History of bilateral deep venous thrombosis in 2014, on Xarelto. 3. Recurrent episodes of aspiration pneumonia. 4. Atelectasis in the left lung that is chronic. 5. Iron deficiency anemia. 6. Psychosis. 7. Rhinitis. 8. Asthma. 9. Chronic respiratory failure, on home O2 at 5 L. DISCHARGE MEDICATIONS: 1. Acetaminophen 650 mg via PEG tube, q.6 hours p.r.n. pain or fever. 2. Albuterol/ipratropium 1 nebulizer q.6 hours while awake. 3. Vitamin C 500 mg G-tube b.i.d. 4. Benztropine 1 mg G-tube b.i.d. 5. Betamethasone 0.05% topical b.i.d. as needed for rash. 6. Bisacodyl 10 mg per rectum daily p.r.n. constipation. 7. Calcium carbonate 5 mL via G-tube daily. 8. Debrox 6.5% two drops to both ears on Wednesdays. 9. Chlorpromazine 400 mg G-tube at bedtime. 10. Desitin topical b.i.d. as needed for rash. 11. Loratadine 10 mg G-tube daily. 12. Milk of magnesia 30 mL G-tube daily as needed for constipation. 13. Mupirocin 2% topical b.i.d. as needed for rash. 14. Zyprexa 10 mg p.o. daily. 15. MiraLAX 34 g G-tube daily. 16. Olanzapine 5 mg G-tube in the morning and 10 mg G-tube in the evening. 17. Resource Beneprotein 1 dose via G-tube t.i.d. 18. Xarelto 20 mg via G-tube daily. 19. Fleet Enema, 1 enema per rectum q.3 days as needed for constipation. 20. Valproic acid 10 mL G-tube t.i.d. 21. Jevity 1.5, two cans via G-tube at 0800 hours and 1400 hours and one can 2000 hours. ALLERGIES: LEVOFLOXACIN, the patient experiences rash. DISCHARGE SUMMARY: Please see history and physical by Dr. Garcia for full admission details, but in summary, Mr. Kinsey is a 56-year-old male with a severe intellectual developmental delay, recurrent aspiration pneumonia, chronic left lung atelectasis with chronic respiratory failure, on 5 L of oxygen at baseline, who presented to the emergency department with concern for "low oxygen levels." The patient is nonverbal and the history was obtained from his caregiver who was at the bedside on admission. It was reported that day prior to admission, it was noticed that his oxygen level was dropping so they increased his oxygen to 6 L. Later on, he had improved and he returned to 5 L and apparently this happened multiple times throughout the day. He was noted to be febrile with temperature of 102 and to be breathing faster, coughing , and when they increased his oxygen to 6 L that evening, he did not respond and continued to have low oxygen saturations and was brought to the emergency department for evaluation. This appeared to be similar to his prior presentations in the past with pneumonia. The patient was admitted to the medical unit. The patient was tested negative for both influenza A and B. His chest x-ray showed left lung atelectasis with no significant change when compared to prior. He did undergo a CT of the chest, which showed "1. Filling defect beginning in the right main stem pulmonary artery extending into the lobar branches, could represent large pulmonary embolus, or alternatively, mixing artifact due to attenuation arterial flow to the patient chronically, almost completely consolidated left lung. 2. Again seen is consolidation in the left upper and lower lobes, although there is increased foci airways relative to the October 07 CT examination. 3. Patchy infiltrate seen in the right lower lobe, in addition to small right- sided pleural effusion. There is also consolidation involving the medial aspect of the right upper lobe. Any of these could represent pneumonia versus atelectasis." Due to this CTA reading, I discussed the CTA with radiologist, Dr. Vázquez, who originally read the report. He reports that most likely, these findings are attenuation, which is artifact with blood mixing, due to the patient's underlying chronic disease and this imaging is similar to what was seen on previous CAT scans. Clinically, the patient does not appear to have a pulmonary embolism and he is on Xarelto. The patient underwent a venous Doppler study of his lower extremities as he did note to have DVTs in 2014 in which he was then placed on Xarelto. The Doppler shows no evidence of DVTs. I side-consult with chair mechanic, Dr. Stockton, who states that she does not believe this to be Xarelto failure and since the patient has chronic underlying lung disease and similar findings on previous CTAs, she suggests not stopping the Xarelto. Clinically, I have low suspicion for pulmonary embolism. The patient is not tachypneic or hypoxic. He has actually stayed on his home oxygenation of 5 L throughout hospitalization. He has had no leukocytosis and has remained afebrile. My suspicion is that he aspirated and had aspiration pneumonitis/ possible pneumonia. He had been treated with Zosyn and has done well throughout his hospitalization. The patient will be switched to Augmentin on discharge. The patient appears to be at his baseline yesterday and today and is stable for discharge back to [facility]. Please note the patient also underwent a transthoracic echocardiogram of his heart to look for right-sided heart failure as this could be seen with the large pulmonary embolism. There was no noted right-sided heart failure. The report read "global left ventricular wall motion and contractility are within normal limits. There is normal left ventricular systolic function. The estimated ejection fraction is 55% to 60%. The right ventricular global systolic function is mildly to moderately reduced. Right atrium is moderately dilated. There is a trace of aortic regurgitation. There is no evidence of aortic stenosis. There is mild mitral regurgitation. There is no evidence of mitral stenosis. There is mild tricuspid regurgitation. There is evidence of mild pulmonary hypertension. There are no significant changes when compared to the previous study done on 12/10/12." The patient has been continued on strict bowel regimen. He did have two large bowel movements overnight. In regards to the patient's chronic aspiration most likely secondary to oropharyngeal secretions as the patient does not take p.o. and has a PEG tube placed. It will be probably beneficial to not allow the patient to lie flat and be propped up on pillows with his head above 20 degree, if not 40-degree angle. DISCHARGE PLAN: The patient is stable for discharge back to [facility]. Follow up with PCP within this week. TIME SPENT: Approximately 60 minutes was spent on this discharge. MARLEE BORJA NP CC: Dr. Easton Dooley * [id number]/CPS #: [id number] [facility]
== END 2016-12-09 12:55 | DRG 177 ==
LOC: ED 03:24 → SSU 07:02
PROVIDERS: ADMIT Internal Medicine; ATTEND Hospitalist
DX: J69.0 Pneumonitis due to inhalation of food and vomit (principal); J96.21 Acute and chronic respiratory failure with hypoxia; K56.69 Other intestinal obstruction; R13.10 Dysphagia, unspecified; Z99.81 Dependence on supplemental oxygen; I27.2 Other secondary pulmonary hypertension; J98.11 Atelectasis; Z93.1 Gastrostomy status; F81.9 Developmental disorder of scholastic skills, unspecified; K59.09 Other constipation; Z86.718 Personal history of other venous thrombosis and embolism; F29 Unspecified psychosis not due to a substance or known physiological condition; J45.909 Unspecified asthma, uncomplicated; I08.3 Combined rheumatic disorders of mitral, aortic and tricuspid valves; Z88.1 Allergy status to other antibiotic agents; K21.9 Gastro-esophageal reflux disease without esophagitis; F41.9 Anxiety disorder, unspecified; Z66 Do not resuscitate; F79 Unspecified intellectual disabilities; D50.9 Iron deficiency anemia, unspecified; Z79.01 Long term (current) use of anticoagulants
CPT/HCPCS: 36415; 71020; 71275; 80048; 83605; 85025; 87040; 87502; 87641; 93306; 93970; 94640; 94667; A9270-GY; J2250; J2543; Q9967

== ENCOUNTER 2017-01-13 03:36 | Inpatient (IN) | payer MEDICARE, MEDICAID ==
[2017-01-13 04:07] LABS: Hematocrit 31 % (42-52); Mean Corpuscular HGB Conc 32 g/dl (31-36); Mean Corpuscular Hemoglobin 29 pg (27-31); Mean Corpuscular Volume 88 fL (80-94); Mean Platelet Volume 9 um3 (7.4-10.4); Red Blood Count 3.49 10^6/ul (4.0-5.4); Red Cell Distribution Width 15 % (10.5-15); White Blood Count 4.7 10^3/ul (3.5-10.8)
[2017-01-13 04:19] LABS: Albumin 3.7 g/dL (3.2-5.2); BUN/Creatinine Ratio 32.5 (8-20); Calcium 9.6 mg/dL (8.6-10.3); EGFR African American 285.2 (>60); EGFR Non-African American 221.7 (>60); Globulin 4.5 g/dL (2-4); Potassium 3.9 mmol/L (3.5-5.0); Total Bilirubin 0.4 mg/dL (0.2-1.0); Total Protein 8.2 g/dL (6.4-8.9)
[2017-01-13 04:21] LABS: Troponin I 0.01 ng/mL (<0.04)
[2017-01-13] MEDS ORDERED: Piperac/Tazob 3.375 gm in NS* 3.375 GM/100 ML BAG IVPB ONE (04:21)
[2017-01-13] MEDS ORDERED: Vancomycin(*) 1,000 MG in NS 0.9% 250 ML* 250 ML IVPB ONE (04:21)
--- NOTE | 2017-01-13 04:35 | ED ---
I, Loco,Augustus, scribed for Alon Dimas MD on 01/13/17 at 0409 . Shortness of Breath - HPI Summary HPI Summary: LEVEL 5 CAVEAT secondary to profound MR This 56 y/o male presents to ED via [facility] ambulance from [facility] after pt was noted to have difficulty breathing. Time of onset is unknown. Pt poorly tolerated EMS CPAP en route. 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 Pt is DNR. Pt was last seen at [facility] for aspiration PNA on 12/07/2016. Respiratory therapist paged for suction. - History of Current Complaint Time Seen by Provider: 01/13/17 03:44 Hx Obtained From: EMS, Medical Records Onset/Duration: Sudden Onset, Still Present Dyspnea At: Rest Aggrevating Factors: Nothing Alleviating Factors: Nothing Associated Signs & Symptoms: Negative - Allergy/Home Medications Allergies/Adverse Reactions: Allergies Allergy/AdvReac Type Severity Reaction Status Date / Time Levofloxacin Allergy Rash Verified 01/13/17 04:56 Home Medications: Home Medications Artificial Saliva [Biotene Oralbalance Dry M] 1 gel MT 0800 01/13/17 [History Confirmed 01/13/17] Simethicone CHEW TAB* [Mylicon*] 80 mg G TUBE AC 01/13/17 [History Confirmed ] PMH/Surg Hx/FS Hx/Imm Hx Endocrine/Hematology History: Reports: Hx Anemia Denies: Hx Diabetes, Hx Thyroid Disease Cardiovascular History: Reports: Hx Deep Vein Thrombosis Denies: Hx Congestive Heart Failure, Hx Hypertension, Other Cardiovascular Problems/Disorders Respiratory History: Reports: Hx Pneumonia - frequent aspiration pna, Hx Seasonal Allergies - LORATADINE PO, Other Respiratory Problems/Disorders - Left lung deaeration; recurrent respiratory failure Denies: Hx Asthma, Hx Lung Cancer GI History: Reports: Hx Gastroesophageal Reflux Disease, Hx Obstructive Bowel, Other GI Disorders - helga syndrome Denies: Hx Ulcer History: Denies: Hx Acute Renal Failure, Hx Dialysis, Hx Renal Disease Musculoskeletal History: Reports: Hx Orthopedic Injury - hx ankle ORIF s/p fall and fracture, Other Musculoskeletal History - ankle fx contractures Sensory History: Denies: Hx Contacts or Glasses, Hx Hearing Aid Opthamlomology History: Denies: Hx Contacts or Glasses Neurological History: Reports: Hx Developmental Delay - profound intellectual disabilitiy, Other Neuro Impairments/Disorders - severe MR Denies: Hx Seizures Psychiatric History: Reports: Hx Anxiety, Hx of Violent Episodes Against Others - grabbing, pinching and scratching, Other Psychiatric Issues/Disorders - psychosis - Cancer History Cancer Type, Location and Year: L lung deaeration (opacification of L lung) Hx Chemotherapy: No Hx Radiation Therapy: No Hx Palliative Cancer Treatment: No - Surgical History Surgery Procedure, Year, and Place: PEG TUBE, MULT BOWEL OBSTRUCTIONS, ORIF L ankle Hx Anesthesia Reactions: No - Immunization History Date of Tetanus Vaccine: Unk Date of Influenza Vaccine: Unk Infectious Disease History: Reports: Hx of Known/Suspected MRSA, History Other Infectious Disease - positive for strep A Denies: Hx Hepatitis, Hx Human Immunodeficiency Virus (HIV) - Family History Known Family History: Positive: Unknown - LEVEL 5 CAVEAT secondary to profound MR - Social History Lives: Assisted Living - [facility] Alcohol Use: None Hx Substance Use: No Substance Use Type: Reports: None Hx Tobacco Use: No Smoking Status (MU): Never Smoked Tobacco Have You Smoked in the Last Year: No Review of Systems - ROS Summary Review of Systems Summary: LEVEL 5 CAVEAT secondary to profound MR. Negative: Fever Positive: Shortness Of Breath All Other Systems Reviewed And Are Negative: No Physical Exam Triage Information Reviewed: Yes Vital Signs On Initial Exam: Initial Vitals Temp Pulse Resp BP Pulse Ox 99.8 F 104 56 139/59 88 01/13/17 03:40 01/13/17 03:40 01/13/17 03:40 01/13/17 03:40 01/13/17 03:40 Vital Signs Reviewed: Yes Completion Of Physical Exam Limited Due To: Extremis Appearance: Positive: Ill-Appearing Skin: Positive: Warm Head/Face: Positive: Normal Head/Face Inspection Eyes: Positive: BORIS ENT: Positive: Hearing grossly normal Respiratory/Lung Sounds: Positive: Other - marked decresed coarse bs left lung , tacypneic Cardiovascular: Positive: Tachycardia Abdomen Description: Positive: Soft Diagnostics - Vital Signs Vital Signs Temp Pulse Resp BP Pulse Ox 01/13/17 04:17 34 01/13/17 04:00 103 45 93 01/13/17 03:49 104 50 91 01/13/17 03:48 104 58 139/59 88 01/13/17 03:45 99.8 F 105 54 139/57 90 01/13/17 03:40 99.8 F 104 56 139/59 88 - Laboratory Lab Results: Lab Results 01/13/17 01/13/17 01/13/17 Range/Units 03:41 03:41 03:41 WBC 4.7 (3.5-10.8) 10^3/ul RBC 3.49 L (4.0-5.4) 10^6/ul Hgb 10.0 L (14.0-18.0) g/dl Hct 31 L (42-52) % MCV 88 (80-94) fL MCH 29 (27-31) pg MCHC 32 (31-36) g/dl RDW 15 (10.5-15) % Plt Count 148 L (150-450) 10^3/ul MPV 9 (7.4-10.4) um3 Neut % (Auto) 70.7 (38-83) % Lymph % (Auto) 13.0 L (25-47) % [place] % (Auto) 15.5 H (1-9) % Eos % (Auto) 0.7 (0-6) % Baso % (Auto) 0.1 (0-2) % Absolute Neuts (auto) 3.3 (1.5-7.7) 10^3/ul Absolute Lymphs (auto) 0.6 L (1.0-4.8) 10^3/ul Absolute Monos (auto) 0.7 (0-0.8) 10^3/ul Absolute Eos (auto) 0 (0-0.6) 10^3/ul Absolute Basos (auto) 0 (0-0.2) 10^3/ul Absolute Nucleated RBC 0.01 10^3/ul Nucleated RBC % 0.1 Sodium 136 (133-145) mmol/L Potassium 3.9 (3.5-5.0) mmol/L Chloride 95 L (101-111) mmol/L Carbon Dioxide 32 (22-32) mmol/L Anion Gap 9 (2-11) mmol/L BUN 13 (6-24) mg/dL Creatinine 0.40 L (0.67-1.17) mg/dL Est GFR ( Amer) 285.2 (>60) Est GFR (Non-Af Amer) 221.7 (>60) BUN/Creatinine Ratio 32.5 H (8-20) Glucose 124 H (70-100) mg/dL Lactic Acid 3.2 H* (0.5-2.0) mmol/L Calcium 9.6 (8.6-10.3) mg/dL Total Bilirubin 0.40 (0.2-1.0) mg/dL AST 21 (13-39) U/L ALT 17 (7-52) U/L Alkaline Phosphatase 91 (34-104) U/L Troponin I 0.01 (<0.04) ng/mL Total Protein 8.2 (6.4-8.9) g/dL Albumin 3.7 (3.2-5.2) g/dL Globulin 4.5 H (2-4) g/dL Albumin/Globulin Ratio 0.8 L (1-3) Result Diagrams: 01/13/17 03:41 01/13/17 03:41 Lab Statement: Any lab studies that have been ordered have been reviewed, and results considered in the medical decision making process. - Radiology CXR Radiology Interpretation Completed By: ED Physician - See EMR for official reading Course/Dx - Diagnoses Provider Diagnoses: Pneumonia - Physician Notifications Discussed Care of Patient With: Dr. Loaiza (Hospitalist) at 0540 AM Time Discussed With Above Provider: 05:40 Instructed by Provider To: Admit As Inpatient - Critical Care Time Critical Care Time: 30-74 min Discharge - Discharge Plan Condition: Fair Disposition: ADMITTED TO [facility] documentation as recorded by the Loco silveira Soohyun accurately reflects the service I personally performed and the decisions made by , Alon Dimas MD.
[2017-01-13] MEDS ORDERED: Bisacodyl SUPP* 10 MG SUPP PR PRN (06:27)
[2017-01-13] MEDS ORDERED: Sodium Phosphate ADULT ENEMA* 118 ml bottle PR PRN (06:27)
[2017-01-13] MEDS ORDERED: Zinc Oxide 16% PASTE* (Butt Patse) 1 TUBE TOPICAL PRN (06:27)
[2017-01-13] MEDS ORDERED: Mupirocin 2% CREAM* 15 GM TOPICAL PRN (06:27)
[2017-01-13] MEDS ORDERED: Magnesium Hydroxide LIQ* 30 ML UDC PEG TUBE PRN (06:27)
[2017-01-13] MEDS ORDERED: NUTRITIONAL SUPPLEMENTS G TUBE SCH ×2 (06:30→08:00)
[2017-01-13] MEDS ORDERED: Morphine INJ* 4 MG/ML 1 ML SYRINGE ONE ×2 (06:36→22:34)
[2017-01-13] MEDS: Morphine INJ* 4 MG/ML 1 ML SYRINGE IV PRN ×3 (06:38→22:37)
[2017-01-13] MEDS ORDERED: Acetaminophen ADULT LIQ* 650 MG/20.3 ML UDC ONE (06:47)
[2017-01-13] MEDS: Acetaminophen ADULT LIQ* 650 MG/20.3 ML UDC PO PRN ×2 (06:48→15:53)
[2017-01-13] MEDS ORDERED: Acetaminophen SUPP* 650 MG SUPP PR PRN (07:05)
--- NOTE | 2017-01-13 07:59 | RAD ---
INDICATION: Shortness of breath. COMPARISON: Comparison is made with prior CT of the chest and chest x-ray study from December 07, 2016 and a chest x-ray exam from November. TECHNIQUE: 2 portable views of the chest were obtained. FINDINGS: There is complete opacification of the left hemithorax obscuring the cardiac borders. There is also a small infiltrate at the right lung base which appears improved from the prior chest x-ray exam. IMPRESSION: 1. COMPLETE OPACIFICATION OF THE LEFT HEMITHORAX, UNCHANGED. 2. SMALL RIGHT BASILAR INFILTRATE SLIGHTLY IMPROVED.
[2017-01-13] MEDS: Albuterol/Ipratropium NEB.SOL* Albuterol 2.5 MG/Ipratropium 0.5 MG 3 ML INH SCH ×3 (09:03→20:16)
[2017-01-13] MEDS: Polyethylene Glycol 3350* 17 GM PACKET PO SCH (09:59)
[2017-01-13] MEDS: Cetirizine* 10 MG TAB PO SCH (10:00)
[2017-01-13] MEDS: OLANzapine TAB*ODT* 5 MG SCH (10:00)
[2017-01-13] MEDS: Simethicone CHEW TAB* 80 MG PO SCH (10:00)
[2017-01-13] MEDS: Ascorbic Acid TAB* 500 MG G TUBE SCH ×2 (10:00→20:32)
[2017-01-13] MEDS: Valproic Acid LIQ(*) 250 MG/5 ML UDC G TUBE SCH ×3 (10:00→20:32)
[2017-01-13] MEDS: Rivaroxaban TAB(*) 20 MG TAB PO SCH (10:00)
[2017-01-13] MEDS: Benztropine TAB* 1 MG PO SCH ×2 (10:01→20:33)
[2017-01-13] MEDS: Calcium Carbonate LIQ* 1,250 MG/5 ML UDC G TUBE SCH (10:02)
[2017-01-13] MEDS: SALIVA SUBSTITUTE MT SCH (10:02)
[2017-01-13] MEDS: Piperac/Tazob 3.375 gm in NS* 3.375 GM/100 ML BAG IVPB SCH ×2 (10:02→16:35)
--- NOTE | 2017-01-13 10:14 | PN ---
Subjective Date of Service: 01/13/17 Interval History: Seen and examined with caregiver from [facility] at bedside This is the caregiver who was caring for him prior to hospital stay and activated EMS She indicates his work of breathing is much improved since admission She indicates several residents have had influenza and other viral illnesses He appears more lethargic than usual. He has had a cough x 3 days worse overnight Objective Active Medications: Acetaminophen (Tylenol Adult Liq*) 650 mg PO Q6H PRN PRN Reason: DISCOMFORT Last Admin: 01/13/17 06:48 Dose: 650 mg Acetaminophen (Tylenol Supp*) 650 mg [place] Q4H PRN PRN Reason: FEVER/PAIN Albuterol/Ipratropium (Duoneb (Albuterol 2.5 Mg/Ipratropium 0.5 Mg)) 1 neb INH [id number] AWAKE [facility] Last Admin: 01/13/17 09:03 Dose: 1 neb Ascorbic Acid (Vitamin C Tab*) 500 mg G TUBE BID [facility] Last Admin: 01/13/17 10:00 Dose: 500 mg Benztropine Mesylate (Cogentin Tab*) 1 mg PO BID [facility] Last Admin: 01/13/17 10:01 Dose: 1 mg Bisacodyl (Dulcolax Supp*) 10 mg [place] DAILY PRN PRN Reason: CONSTIPATION Last Admin: 01/13/17 10:01 Dose: 10 mg Calcium Carbonate (Calcium Carbonate Liq*) 1,250 mg G TUBE DAILY [facility] Last Admin: 01/13/17 10:02 Dose: 1,250 mg Carbamide Peroxide (Debrox 6.5% Otic*) 2 drop BOTH EARS WE [facility] Cetirizine HCl (Zyrtec*) 10 mg PO DAILY [facility] Last Admin: 01/13/17 10:00 Dose: 10 mg Chlorpromazine HCl (Thorazine Tab*) 400 mg G TUBE BEDTIME [facility] Piperacillin Sod/Tazobactam Sod (Zosyn 3.375 Gm In Ns Premix*) 3.375 gm in 100 mls @ 25 mls/hr IVPB Q8H [facility] Last Admin: 01/13/17 10:02 Dose: 25 mls/hr Sodium Chloride (Ns 0.9% 1000 Ml*) 1,000 mls @ 125 mls/hr IV PER RATE [facility] Stop: 01/13/17 18:14 Magnesium Hydroxide (Milk Of Magnesia Liq*) 30 ml PEG TUBE 0900 PRN PRN Reason: CONSTIPATION Last Admin: 01/13/17 10:00 Dose: 30 ml Morphine Sulfate (Morphine Inj (Syringe)*) 4 mg IV Q4H PRN PRN Reason: Pain/Respiratory distress Last Admin: 01/13/17 06:38 Dose: 4 mg Mupirocin (Bactroban 2% Cream*) 1 applic TOPICAL BID PRN PRN Reason: WOUND CARE Last Admin: 01/13/17 10:01 Dose: 1 applic Non-Formulary Medication (Protein [Resource Beneprotein]) 1 dose G TUBE TID [facility] Non-Formulary Medication (Nutritional Supplements [Jevity 1.5 Fletcher]) 1 can G TUBE QPM@2000 [facility] Non-Formulary Medication (Nutritional Supplements [Jevity 1.5 Fletcher]) 2 liq G TUBE 0800,1400 [facility] Olanzapine (Zyprexa * Tab Odt) 5 mg .SEE ORDER QAM [facility] Last Admin: 01/13/17 10:00 Dose: 5 mg Olanzapine (Zyprexa *Odt*) 10 mg .SEE ORDER 1999 [facility] Polyethylene Glycol/Electrolytes (Miralax*) 34 gm PO DAILY [facility] Last Admin: 01/13/17 09:59 Dose: 34 gm Rivaroxaban (Xarelto (*)) 20 mg PO DAILY [facility] Last Admin: 01/13/17 10:00 Dose: 20 mg Saliva Substitute (Biotene Moisturizing Mouth (Nf)) 1 spray MT 0800 [facility] Last Admin: 01/13/17 10:02 Dose: 1 spray Simethicone (Mylicon*) 80 mg PO AC [facility] Last Admin: 01/13/17 10:00 Dose: 80 mg Sodium Biphosphate/Sodium Phosphate (Fleet Enema*) 1 bottle [place] .SEE INSTRUCTIONS PRN PRN Reason: CONSTIPATION Valproic Acid (Depakene Liq(*)) 500 mg G TUBE TID [facility] Last Admin: 01/13/17 10:00 Dose: 500 mg Zinc Oxide (Noah's Butt Paste) 1 applic TOPICAL TID PRN PRN Reason: RASH Last Admin: 01/13/17 10:01 Dose: 1 applic Vital Signs 01/13/17 01/13/17 01/13/17 07:30 07:35 07:44 Temperature 101 F 99.1 F Pulse Rate 105 104 107 Respiratory 41 44 37 Rate Blood Pressure 144/52 144/52 118/72 (mmHg) O2 Sat by Pulse 97 93 Oximetry 01/13/17 01/13/17 01/13/17 08:00 08:15 08:30 Temperature Pulse Rate 108 104 102 Respiratory 42 37 29 Rate Blood Pressure 126/52 121/62 121/51 (mmHg) O2 Sat by Pulse 91 94 100 Oximetry 01/13/17 01/13/17 01/13/17 08:45 09:00 09:04 Temperature Pulse Rate 101 101 Respiratory 26 26 Rate Blood Pressure 128/48 124/51 (mmHg) O2 Sat by Pulse 100 100 Oximetry 01/13/17 09:08 Temperature Pulse Rate 100 Respiratory 25 Rate Blood Pressure (mmHg) O2 Sat by Pulse 100 Oximetry Oxygen Devices in Use Now: High Flow Nasal Cannula Appearance: Sitting 45 deg in bed, mild respiratory distress with increased RR but no accessory muscle use Eyes: PERRLA Ears/Nose/Mouth/Throat: - - dry MM Neck: NL Appearance and Movements; NL JVP, Trachea Midline Respiratory: Symmetrical Chest Expansion and Respiratory Effort, - - rales throughout, decreased in bases Abdominal: - - soft. distended, NTTP, +bs, PEG site c/d/i Lymphatic: No Cervical Adenopathy Extremities: - - 1-2+ LE pitting edema Skin: No Rash or Ulcers Neurological: - - severe MR, does not answer questions or follow commands, moves all extremities to pain Result Diagrams: 01/13/17 03:41 01/13/17 03:41 Additional Lab and Data: Lab Results 01/13/17 01/13/17 01/13/17 Range/Units 03:41 03:41 03:41 WBC 4.7 (3.5-10.8) 10^3/ul RBC 3.49 L (4.0-5.4) 10^6/ul Hgb 10.0 L (14.0-18.0) g/dl Hct 31 L (42-52) % MCV 88 (80-94) fL MCH 29 (27-31) pg MCHC 32 (31-36) g/dl RDW 15 (10.5-15) % Plt Count 148 L (150-450) 10^3/ul MPV 9 (7.4-10.4) um3 Neut % (Auto) 70.7 (38-83) % Lymph % (Auto) 13.0 L (25-47) % [place] % (Auto) 15.5 H (1-9) % Eos % (Auto) 0.7 (0-6) % Baso % (Auto) 0.1 (0-2) % Absolute Neuts (auto) 3.3 (1.5-7.7) 10^3/ul Absolute Lymphs (auto) 0.6 L (1.0-4.8) 10^3/ul Absolute Monos (auto) 0.7 (0-0.8) 10^3/ul Absolute Eos (auto) 0 (0-0.6) 10^3/ul Absolute Basos (auto) 0 (0-0.2) 10^3/ul Absolute Nucleated RBC 0.01 10^3/ul Nucleated RBC % 0.1 Sodium 136 (133-145) mmol/L Potassium 3.9 (3.5-5.0) mmol/L Chloride 95 L (101-111) mmol/L Carbon Dioxide 32 (22-32) mmol/L Anion Gap 9 (2-11) mmol/L BUN 13 (6-24) mg/dL Creatinine 0.40 L (0.67-1.17) mg/dL Est GFR ( Amer) 285.2 (>60) Est GFR (Non-Af Amer) 221.7 (>60) BUN/Creatinine Ratio 32.5 H (8-20) Glucose 124 H (70-100) mg/dL Lactic Acid 3.2 H* (0.5-2.0) mmol/L Calcium 9.6 (8.6-10.3) mg/dL Total Bilirubin 0.40 (0.2-1.0) mg/dL AST 21 (13-39) U/L ALT 17 (7-52) U/L Alkaline Phosphatase 91 (34-104) U/L Troponin I 0.01 (<0.04) ng/mL Total Protein 8.2 (6.4-8.9) g/dL Albumin 3.7 (3.2-5.2) g/dL Globulin 4.5 H (2-4) g/dL Albumin/Globulin Ratio 0.8 L (1-3) Microbiology and Other Data: Microbiology 01/13/17 08:00 Influenza Types A,B Antigen (MICHELLE) - Final Nasal Specimen received for Influenza A/B Molecular testing Assess/Plan/Problems-Billing Assessment: 56 yo M h/o severe intellectual disability, helga's syndrome, recurrent aspiration events with multiple hospital stays for respiratory failure returning with hypoxic respiratory failure - Patient Problems (1) Acute respiratory failure with hypoxia Comment: Suspect recurrent aspiration event with high fevers Sepsis is present on admission c/w zosyn. Received vanco in ED. Will continue - to be dosed by pharmacy Normal saline 1 L at 125 cc, lactate improving c/w Vapotherm. Can transition to BiPAP if any decompensation although is improved since admission. I have asked our assistant real estate manager to assist in his care as well. Pt is DNR/I but can accept all therapies excluding intubation for respiratory failure (2) Chappell's syndrome Comment: Stable On aggressive outpatient bowel regimen. 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 (4) Psychosis Comment: c/w zyprexa, and depakote (5) DNR (do not resuscitate)
[2017-01-13] MEDS ORDERED: NS 0.9% 1000 ML* 1,000 ML IV SCH (10:15)
[2017-01-13] MEDS ORDERED: Vancomycin per Pharmacy* NOTE FOLLOW UP SCH (11:00)
[2017-01-13] MEDS: PROTEIN G TUBE SCH ×3 (11:03→20:36)
--- NOTE | 2017-01-13 11:31 | CONSULT ---
Consult Consult: Consultation Note Critical Care Requesting Physician: Dr Serna Reason for consult: hypoxia, aspiration pneumonia Limitations in history/physical: mental retardation is limiting history ( history from chart) Date of consult: 01/13/2017 HPI: 56y M pmhx of Mental retardation, dysphagia s/p PEG, chronic aspiration, possible Ogilive syndrome, chronic hypoxia/home O2 use; Noted to [place] [facility] [place] via EMS from [facility] for respiratory distress. He was placed on CPAP in EMS. In ER found to be tachypneic (rr 55), tachycardic (hr 104), hypoxic (sat 88%), with temp of 99.8. He was admitted this morning to ICU for hypoxic resp failure, delirium/ lethargy. He is noted to be DNR as per records and caregiver. History states other residents at the home had respiratory infections, Influenza also present. He spiked a temp of 101 this morning, remains tachycardic but improving oxygenation. No known sputum production, cough+; unable to determine if chest pain. No diarrhea/n/v. no syncope/falls. no diaphoresis. In ICU, started on hiflow 100% 40lpm - last sats 99%, rr 24, mild resp distress , not diaphoretic, nonverbal, tired appearing. But less distress than initially on arrival in ICU. on IVF infusion now 125cc/hour. Abx started with zosyn and vancomycin as per sepsis protocol for aspiration pneumonia. ROS: unable to obtain due to mental status PMHx: Severe Mental retardation, dysphagia, chronic aspiration, ogilive syndrome, h/o DVT, anemia, GERD, PSHx: s/p PEG, h/o ORIF of ankle s/p fall/fracture Family History: unknown Social History: Alcohol - none, Smoking - none, Drug use none; lives in home for assistance Allergies: levofloxacin Home Medications: Benztropine TAB* [Cogentin TAB*] 1 mg G TUBE BID 11/13/12 [History Confirmed ] Calcium Carbonate LIQ* [Calcium Carbonate Liq*] 5 ml G TUBE DAILY 11/13/12 [ History Confirmed 01/13/17] LoraTADine TAB(NF) [Claritin 10 MG TAB(NF)] 10 mg G TUBE DAILY 11/13/12 [ History Confirmed 01/13/17] Valproic Acid LIQ(*) [Depakene Liq(*)] 10 ml G TUBE TID 11/13/12 [History Confirmed 01/13/17] Ascorbic Acid TAB* [Vitamin C TAB*] 500 mg G TUBE BID 05/17/13 [History Confirmed 01/13/17] OLANzapine TAB* [Zyprexa 10 MG TAB*] 10 mg G TUBE 199906/17/13 [History Confirmed 01/13/17] Bisacodyl SUPP* [Dulcolax Supp*] 10 mg ID DAILY PRN 04/20/14 [History Confirmed 01/13/17] Nutritional Supplements [Jevity 1.5 Fletcher] 1 can G TUBE .ONCE@ 199904/20/14 [ History Confirmed 01/13/17] Protein [Resource Beneprotein] 1 dose G TUBE TID 04/21/14 [History Confirmed ] Acetaminophen ADULT LIQ* [Tylenol ADULT LIQ*] 650 mg PO Q6H PRN 09/17/15 [ History Confirmed 01/13/17] Carbamide Peroxide 6.5% OTIC* [DEBROX 6.5% Otic*] 2 drop BOTH EARS WE 09/17/15 [ History Confirmed 01/13/17] Magnesium Hydroxide LIQ* [Milk of Magnesia LIQ*] 30 ml PEG TUBE 0900 PRN [History Confirmed 01/13/17] Mupirocin 2% CREAM* [Bactroban 2% CREAM*] 1 applic TOPICAL BID PRN 07/30/16 [ History Confirmed 01/13/17] Polyethylene Glycol 3350* [Miralax*] 34 gm PO DAILY 07/30/16 [History Confirmed 01/13/17] chlorproMAZINE TAB* [Thorazine TAB*] 400 mg G TUBE BEDTIME 07/30/16 [History Confirmed 01/13/17] Nutritional Supplements [Jevity 1.5 Fletcher] 2 liq G TUBE 0800,1400 08/02/16 [ History Confirmed 01/13/17] Rivaroxaban TAB(*) [Xarelto 20 mg] 20 mg PEG TUBE DAILY 08/02/16 [History Confirmed 01/13/17] Sodium Phosphate ADULT ENEMA* [Fleet Enema*] 1 enema ID SEE INSTRUCTIONS PRN 06/10 [History Confirmed 01/13/17] Albuterol/Ipratropium NEB.ANÍBAL* [Duoneb (Albuterol 2.5 MG/Ipratropium 0.5 MG)] 1 neb INH [id number] AWAKE #1 box 08/21/16 [Rx Confirmed 01/13/17] OLANzapine TAB*ODT* 5 mg G TUBE QAM 09/24/16 [History Confirmed 01/13/17] Zinc Oxide (Topical) [Desitin] 13 % EX TID PRN #0 09/24/16 [History Confirmed 01/13/17] Artificial Saliva [Biotene Oralbalance Dry M] 1 gel MT 0800 01/13/17 [History Confirmed 01/13/17] Simethicone CHEW TAB* [Mylicon*] 80 mg G TUBE AC 01/13/17 [History Confirmed ] Tele: sinus tachycardia Vitals: tmax 101 on admission Vital Signs Temp 99.1 F 01/13/17 07:44 Pulse 102 01/13/17 11:00 Resp 22 01/13/17 11:00 BP 127/63 01/13/17 10:30 Pulse Ox 100 01/13/17 11:00 Intake & Output 01/12/17 01/13/17 01/13/17 18:59 06:59 18:59 Intake Total 350 350 Balance 350 350 Weight 203 lb 199 lb 15.348 oz Intake: IV Fluids 350 Tube Feeding Flush Amount 350 O2/Vent: hiflow 100% 40lpm, sat 99%, rr 24 Infusions: NS 125cc/hour Current Medications: Current Medications Acetaminophen (Tylenol Adult Liq*) 650 mg PO Q6H PRN PRN Reason: DISCOMFORT Last Admin: 01/13/17 06:48 Dose: 650 mg Acetaminophen (Tylenol Supp*) 650 mg ID Q4H PRN PRN Reason: FEVER/PAIN Albuterol/Ipratropium (Duoneb (Albuterol 2.5 Mg/Ipratropium 0.5 Mg)) 1 neb INH [id number] AWAKE LUCIE Last Admin: 01/13/17 09:03 Dose: 1 neb Ascorbic Acid (Vitamin C Tab*) 500 mg G TUBE BID LUCIE Last Admin: 01/13/17 10:00 Dose: 500 mg Benztropine Mesylate (Cogentin Tab*) 1 mg PO BID [facility] Last Admin: 01/13/17 10:01 Dose: 1 mg Bisacodyl (Dulcolax Supp*) 10 mg ID DAILY PRN PRN Reason: CONSTIPATION Last Admin: 01/13/17 10:01 Dose: 10 mg Calcium Carbonate (Calcium Carbonate Liq*) 1,250 mg G TUBE DAILY [facility] Last Admin: 01/13/17 10:02 Dose: 1,250 mg Carbamide Peroxide (Debrox 6.5% Otic*) 2 drop BOTH EARS WE [facility] Cetirizine HCl (Zyrtec*) 10 mg PO DAILY [facility] Last Admin: 01/13/17 10:00 Dose: 10 mg Chlorpromazine HCl (Thorazine Tab*) 400 mg G TUBE BEDTIME [facility] Piperacillin Sod/Tazobactam Sod (Zosyn 3.375 Gm In Ns Premix*) 3.375 gm in 100 mls @ 25 mls/hr IVPB Q8H [facility] Last Admin: 01/13/17 10:02 Dose: 25 mls/hr Sodium Chloride (Ns 0.9% 1000 Ml*) 1,000 mls @ 125 mls/hr IV PER RATE [facility] Stop: 01/13/17 18:14 Last Admin: 01/13/17 10:41 Dose: 125 mls/hr Sodium Chloride (Ns 0.9% 1000 Ml*) 1,000 mls @ 100 mls/hr IV PER RATE [facility] Magnesium Hydroxide (Milk Of Magnsveta Liq*) 30 ml PEG TUBE 0900 PRN PRN Reason: CONSTIPATION Last Admin: 01/13/17 10:00 Dose: 30 ml Morphine Sulfate (Morphine Inj (Syringe)*) 4 mg IV Q4H PRN PRN Reason: Pain/Respiratory distress Last Admin: 01/13/17 06:38 Dose: 4 mg Mupirocin (Bactroban 2% Cream*) 1 applic TOPICAL BID PRN PRN Reason: WOUND CARE Last Admin: 01/13/17 10:01 Dose: 1 applic Non-Formulary Medication (Protein [Resource Beneprotein]) 1 dose G TUBE TID [facility] Last Admin: 01/13/17 11:03 Dose: Not Given Non-Formulary Medication (Nutritional Supplements [Jevity 1.5 Fletcher]) 1 can G TUBE QPM@2000 [facility] Non-Formulary Medication (Nutritional Supplements [Jevity 1.5 Fletcher]) 2 liq G TUBE 0800,1400 [facility] Olanzapine (Zyprexa * Tab Odt) 5 mg .SEE ORDER QAM [facility] Last Admin: 01/13/17 10:00 Dose: 5 mg Olanzapine (Zyprexa *Odt*) 10 mg .SEE ORDER 1999 [facility] Pharmacy Consult (Vancomycin Per Pharmacy*) 1 note FOLLOW UP .VANC PER PHARMACY [facility] Polyethylene Glycol/Electrolytes (Miralax*) 34 gm PO DAILY [facility] Last Admin: 01/13/17 09:59 Dose: 34 gm Rivaroxaban (Xarelto (*)) 20 mg PO DAILY [facility] Last Admin: 01/13/17 10:00 Dose: 20 mg Saliva Substitute (Biotene Moisturizing Mouth (Nf)) 1 spray MT 0800 [facility] Last Admin: 01/13/17 10:02 Dose: 1 spray Simethicone (Mylicon*) 80 mg PO AC [facility] Last Admin: 01/13/17 10:00 Dose: 80 mg Sodium Biphosphate/Sodium Phosphate (Fleet Enema*) 1 bottle ID .SEE INSTRUCTIONS PRN PRN Reason: CONSTIPATION Valproic Acid (Depakene Liq(*)) 500 mg G TUBE TID [facility] Last Admin: 01/13/17 10:00 Dose: 500 mg Zinc Oxide (Noah's Butt Paste) 1 applic TOPICAL TID PRN PRN Reason: RASH Last Admin: 01/13/17 10:01 Dose: 1 applic Physical Exam: General: awake, nonverbal, alert, mild resp distress (improved), not diaphoretic Head: normocephalic, atraumatic HEENT: no pallor, no icterus, dry mucous membranes Neck: no stridor, no jvd CVS: tachycardic, normal rhythm, no murmur Resp: right sided rhonchi scattered with good air entry, diminished BS all over left side, no rhales, no acc muscle use Abdomen: soft, nontender, distended, PEG+, bowel sounds decreased Ext: pulses+, warm, no edema Skin: intact, no breakdown, no dryness Neuro: awake, alert, nonverbal, moves ext spontaneously, doesnt follow commands Labs: Laboratory Results - last 24 hr 01/13/17 01/13/17 01/13/17 03:41 03:41 03:41 WBC 4.7 RBC 3.49 L Hgb 10.0 L Hct 31 L MCV 88 MCH 29 MCHC 32 RDW 15 Plt Count 148 L MPV 9 Neut % (Auto) 70.7 Lymph % (Auto) 13.0 L [place] % (Auto) 15.5 H Eos % (Auto) 0.7 Baso % (Auto) 0.1 Absolute Neuts (auto) 3.3 Absolute Lymphs (auto) 0.6 L Absolute Monos (auto) 0.7 Absolute Eos (auto) 0 Absolute Basos (auto) 0 Absolute Nucleated RBC 0.01 Nucleated RBC % 0.1 Sodium 136 Potassium 3.9 Chloride 95 L Carbon Dioxide 32 Anion Gap 9 BUN 13 Creatinine 0.40 L Est GFR ( Amer) 285.2 Est GFR (Non-Af Amer) 221.7 BUN/Creatinine Ratio 32.5 H Glucose 124 H Lactic Acid 3.2 H* Calcium 9.6 Total Bilirubin 0.40 AST 21 ALT 17 Alkaline Phosphatase 91 Troponin I 0.01 Total Protein 8.2 Albumin 3.7 Globulin 4.5 H Albumin/Globulin Ratio 0.8 L Influenza A (Rapid) Influenza B (Rapid) 01/13/17 01/13/17 09:15 09:46 WBC RBC Hgb Hct MCV MCH MCHC RDW Plt Count MPV Neut % (Auto) Lymph % (Auto) Paul[place] % (Auto) Eos % (Auto) Baso % (Auto) Absolute Neuts (auto) Absolute Lymphs (auto) Absolute Monos (auto) Absolute Eos (auto) Absolute Basos (auto) Absolute Nucleated RBC Nucleated RBC % Sodium Potassium Chloride Carbon Dioxide Anion Gap BUN Creatinine Est GFR ( Amer) Est GFR (Non-Af Amer) BUN/Creatinine Ratio Glucose Lactic Acid 2.7 H* Calcium Total Bilirubin AST ALT Alkaline Phosphatase Troponin I Total Protein Albumin Globulin Albumin/Globulin Ratio Influenza A (Rapid) Negative Influenza B (Rapid) Negative Imaging: cxr 01/13 - unchanged left sided opacification, likely collapse/plugging based on previous CT chest, no effusion; right sided small infiltrate, no effusion on right. Assessment: 56y M pmhx of Mental retardation, dysphagia s/p PEG, chronic aspiration, possible Ogilive syndrome, chronic hypoxia/home O2 use; comes in for respiratory distress, hypoxia, fevers for suspected aspiration pneumonia/ severe sepsis -Acute Hypoxic Respiratory failure -Aspiration pneumonia -Severe Sepsis -hyperlactatemia -delirium, metabolic/toxic/ Plan: Neuro- neuro checks q4h, cont olanzapine for agitation. Cont valproic acid via peg. aspiration prec. HOB elevated. CVS- IVF bolus given, IVF NS infusion ongoing. monitor urine output. HR and BP improved, less tachycardic and hypertensive. Maintain MAP>65. Trend lactic acid , improving 3.2->2.7, repeat till <2.2 Resp- acute hypoxia, on Hiflow, o2 sats improved, work of breathing improved. Awake. wean down fio2 to keep sat>92%. Can keep NIV on back up for respiratory distress, though again he has risk of aspiration given his recurrent aspiration. keep HOB>30 deg to prevent aspiration. Covering with zosyn/vanco for HCAP/asp coverage. Unchanged CXR from prior with left sided consolidation/ collapse, no effusion to tap. Chest PT may help. Bronchodilators q4h. Bronchoscopy could help with washout, but unable to due to clinical status. DNR/ DNI. on Rivaroxaban via peg for h/o PE. ID- febrile. wbc normal now. hypoxic, with infiltrate RLL small, and left diffuse collapse? cover for aspiration pneumonia given recurrent history. sending legionella. Cont zosyn (day 1) and vancomycin (day 1). Send resp cultures. GI- keep HOB>30. on PEG feeds. Renal- Cr normal. IVF infusion. monitor urine output in setting of sepsis. Heme- baseline anemia. no bleeding. on rivaroxaban po for h/o PE. Endo- none Musculsk- pressure ulcer prophylaxis Wounds- none Nutrition- PEG feeds. DVT prophylaxis: rivaroxban via peg; SCDs GI prophylaxis: PPI via peg Central Line: none Arterial Line: none Pillai Cathetor: yes Disposition: ICU for hypoxic resp failure/severe sepsis; DNR/DNI, trial bipap if needed. Code Status: DNR/DNI. Total Critical Care time is 45 minutes, excluding procedures/teaching Moreno Amaro MD [employer] Supervisor (Electronically Signed)
[2017-01-13] MEDS ORDERED: Albuterol/Ipratropium NEB.SOL* Albuterol 2.5 MG/Ipratropium 0.5 MG 3 ML INH PRN (11:33)
[2017-01-13] MEDS: Vancomycin(*) 1,000 MG in NS 0.9% 250 ML* 250 ML IVPB SCH ×2 (12:22→20:33)
[2017-01-13] MEDS: SIMETHICONE 40 MG/0.6 ML PO SCH ×2 (13:36→16:35)
[2017-01-13] MEDS: NUTRITIONAL SUPPLEMENTS G TUBE SCH ×2 (13:37→20:32)
--- NOTE | 2017-01-13 16:24 | HP ---
HISTORY AND PHYSICAL: DATE OF ADMISSION: 01/13/17 PCP: Dr. Easton Dooley. CHIEF COMPLAINT: Shortness of breath. HISTORY OF PRESENT ILLNESS: Please note the patient himself is nonverbal and cannot give any history. 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 The patient apparently was sent over from his facility [facility] with worsening shortness of breath. He has a history of severe developmental delay, aspiration pneumonia, chronic left lung atelectasis , requiring 5 L of oxygen at home. Apparently, the patient's oxygen level was dropping while at the facility and he became quite tachypneic and was sent over for concerns of same. The patient does have a history of aspiration pneumonia and this is likely recurrence of same. PAST MEDICAL HISTORY: Significant for severe intellectual developmental delay. He is nonverbal. Dysphagia, status post PEG tube placement. Recurrent episodes of aspiration pneumonia. Atelectasis of the left lung but that is chronic. Iron deficiency anemia, psychosis, rhinitis, asthma, chronic respiratory failure on home O2 at 5 L, chronic constipation, Rivas syndrome, history of bilateral DVT's in 2014 and the patient is on Xarelto. CURRENT MEDICATIONS: As follows: 1. Chlorpromazine 400 mg via G-tube at bedtime. 2. Zinc oxide 13% 3 times a day as needed. 3. Valproic acid 10 mL via G-tube 3 times a day. 4. Sodium phosphate enema, 1 enema NC as directed. 5. Simethicone 80 mg via G-tube before each meal. 6. Xarelto 20 mg via PEG tube daily. 7. Resource protein 1 dose via G-tube 3 times a day. 8. Polyethylene glycol 34 g via G-tube daily. 9. Olanzapine ODT 5 mg via G-tube in the morning and 10 mg via G-tube at 8 p.m. 10. Jevity 1.5 calories 2 cans at 8 a.m., 2 p.m. and 1 can at 8 p.m. 11. Bactroban apply b.i.d. as needed. 12. Magnesium hydroxide 30 cc via PEG at 9 a.m. 13. Loratadine 10 mg via G-tube daily. 14. Carbamide peroxide 2 drops both ears on Thursday. 15. Calcium carbonate liquid 5 cc via G-tube daily. 16. Bisacodyl 10 mg NC daily as needed. 17. Benztropine 1 mg via G-tube twice daily. 18. Ascorbic acid 500 mg via G-tube twice daily. 19. Artificial saliva, Biotene OralBalance Dry M 1 gel at 8 a.m. 20. DuoNeb nebulizer q.6 hours as needed. 21. Tylenol adult liquid 650 mg every 6 hours as needed. ALLERGIES: LEVAQUIN that is where he gets a rash. FAMILY HISTORY: Unobtainable. SOCIAL HISTORY: Unable to obtain due to the patient's severe mental retardation. Surrogate decision maker is Spring Bacon [facility], phone number is [phone]. The patient is currently a DNR. REVIEW OF SYSTEMS: Unable to obtain from the patient as he is nonverbal. PHYSICAL EXAMINATION GENERAL: A pleasant gentleman, sitting up in bed, in no acute distress. VITAL SIGNS: Temperature 101, heart rate 105 beats per minute, respiratory rate 41 breaths per minute, pulse ox 97% on 5 L, blood pressure 144/72. HEENT: Normocephalic, atraumatic. Pupils are equal, round, and reactive. CHEST: Bilateral coarse rhonchi throughout. CARDIOVASCULAR: S1, S2 appreciated. ABDOMEN: Positive bowel sounds in all 4 quadrants. Soft, nontender, nondistended. No hepatosplenomegaly. EXTREMITIES: No cyanosis, clubbing, or edema. +2 peripheral pulses bilaterally. NEUROLOGIC: He is alert . He moves all extremities. SKIN: No rashes or abnormalities. DIAGNOSTIC STUDIES/LAB DATA: White count 4.7, hemoglobin 10.0, hematocrit 31, platelets 148. Sodium 136, potassium 3.9, chloride 95, CO2 32, BUN 13, creatinine 0.40, glucose 174, lactic acid 3.2. Chest x-ray shows almost complete left lung atelectasis and possible right lower lobe infiltrate. ASSESSMENT AND PLAN: 1. Likely aspiration pneumonia, especially with this patient's history. The patient is on Zosyn infusion protocol. Check sputum for culture and sensitivity and urine for legionella and pneumococcal antigen. I will place the patient in the ICU as he requires a lot of intense nursing care. I also gave him some morphine to slow down his respiratory rate as he is breathing quite rapidly. The patient's prognosis is always quite poor, but somehow it seems that he will come through at times, although I am not quite sure this will happen at this time. 2. Constipation with [place] syndrome. Continue bowel regimen. 3. Psychosis. Continue his Cogentin, Thorazine, and Zyprexa. 4. DVT prophylaxis. He is currently on Xarelto for DVT's he has had in the past. 5. FEN. Jevity via PEG tube. 6. The patient is a do not resuscitate. TIME SPENT: Over 75 minutes were spent on this H and P, more than 45 minutes were spent in direct [id number] contact with the patient in evaluation, physical exam, counseling, and coordination of care. CC: Dr. Easton Dooley* [id number]/CPS #: [id number] LUCAS
[2017-01-13] MEDS: NS 0.9% 1000 ML* 1,000 ML IV SCH (19:52)
[2017-01-13] MEDS: OLANzapine TAB*ODT* 10 MG TAB SCH (20:32)
[2017-01-13] MEDS: chlorproMAZINE TAB* 200 MG G TUBE SCH (20:32)
[2017-01-14] MEDS: Albuterol/Ipratropium NEB.SOL* Albuterol 2.5 MG/Ipratropium 0.5 MG 3 ML INH SCH ×4 (00:26→19:36)
[2017-01-14] MEDS: Piperac/Tazob 3.375 gm in NS* 3.375 GM/100 ML BAG IVPB SCH ×3 (01:15→17:27)
[2017-01-14] MEDS: Vancomycin(*) 1,000 MG in NS 0.9% 250 ML* 250 ML IVPB SCH ×4 (05:09→20:04)
[2017-01-14] MEDS: Simethicone CHEW TAB* 80 MG PO SCH (05:57)
[2017-01-14] MEDS ORDERED: Carbamide Peroxide 6.5% OTIC* 15 ML BTL BOTH EARS SCH (06:27)
[2017-01-14 06:33] LABS: Hematocrit 25 % (42-52); Hemoglobin 8.1 g/dl (14.0-18.0); Mean Corpuscular HGB Conc 33 g/dl (31-36); Mean Corpuscular Hemoglobin 29 pg (27-31); Mean Corpuscular Volume 88 fL (80-94); Mean Platelet Volume 9 um3 (7.4-10.4); Red Blood Count 2.79 10^6/ul (4.0-5.4); Red Cell Distribution Width 15 % (10.5-15); White Blood Count 5.7 10^3/ul (3.5-10.8)
[2017-01-14 06:46] LABS: BUN/Creatinine Ratio 25.7 (8-20); Calcium 8.4 mg/dL (8.6-10.3); EGFR African American 332.7 (>60); EGFR Non-African American 258.7 (>60)
[2017-01-14] MEDS: SIMETHICONE 40 MG/0.6 ML PO SCH ×3 (07:45→17:27)
[2017-01-14] MEDS: PROTEIN G TUBE SCH ×3 (07:50→20:06)
[2017-01-14] MEDS: Benztropine TAB* 1 MG PO SCH ×2 (07:52→20:05)
[2017-01-14] MEDS: NUTRITIONAL SUPPLEMENTS G TUBE SCH ×3 (07:52→20:04)
[2017-01-14] MEDS: Ascorbic Acid TAB* 500 MG G TUBE SCH ×2 (07:52→20:05)
[2017-01-14] MEDS: Cetirizine* 10 MG TAB PO SCH (07:52)
[2017-01-14] MEDS: OLANzapine TAB*ODT* 5 MG SCH (07:52)
[2017-01-14] MEDS: Rivaroxaban TAB(*) 20 MG TAB PO SCH (07:52)
[2017-01-14] MEDS: Calcium Carbonate LIQ* 1,250 MG/5 ML UDC G TUBE SCH (07:53)
[2017-01-14] MEDS: SALIVA SUBSTITUTE MT SCH (07:53)
[2017-01-14] MEDS: Valproic Acid LIQ(*) 250 MG/5 ML UDC G TUBE SCH ×3 (07:53→20:05)
[2017-01-14] MEDS: Polyethylene Glycol 3350* 17 GM PACKET PO SCH (08:15)
[2017-01-14] MEDS: Morphine INJ* 4 MG/ML 1 ML SYRINGE IV PRN ×3 (09:54→17:35)
--- NOTE | 2017-01-14 10:35 | PN ---
Subjective Date of Service: 01/14/17 Interval History: Vapotherm titrated for 100% down to 40% by this AM. Pt remains lethargic Unable to communicate needs, non verbal at baseline. No [facility] staff at bedside Objective Active Medications: Acetaminophen (Tylenol Adult Liq*) 650 mg PO Q6H PRN PRN Reason: DISCOMFORT Last Admin: 01/13/17 15:53 Dose: 650 mg Acetaminophen (Tylenol Supp*) 650 mg MN Q4H PRN PRN Reason: FEVER/PAIN Albuterol/Ipratropium (Duoneb (Albuterol 2.5 Mg/Ipratropium 0.5 Mg)) 1 neb INH [id number] AWAKE [facility] Last Admin: 01/14/17 07:21 Dose: 1 neb Albuterol/Ipratropium (Duoneb (Albuterol 2.5 Mg/Ipratropium 0.5 Mg)) 1 neb INH Q4H PRN PRN Reason: SOB/WHEEZING Ascorbic Acid (Vitamin C Tab*) 500 mg G TUBE BID [facility] Last Admin: 01/14/17 07:52 Dose: 500 mg Benztropine Mesylate (Cogentin Tab*) 1 mg PO BID [facility] Last Admin: 01/14/17 07:52 Dose: 1 mg Bisacodyl (Dulcolax Supp*) 10 mg MN DAILY PRN PRN Reason: CONSTIPATION Last Admin: 01/13/17 10:01 Dose: 10 mg Calcium Carbonate (Calcium Carbonate Liq*) 1,250 mg G TUBE DAILY [facility] Last Admin: 01/14/17 07:53 Dose: 1,250 mg Carbamide Peroxide (Debrox 6.5% Otic*) 2 drop BOTH EARS WE [facility] Last Admin: 01/14/17 06:33 Dose: 2 drop Cetirizine HCl (Zyrtec*) 10 mg PO DAILY [facility] Last Admin: 01/14/17 07:52 Dose: 10 mg Chlorpromazine HCl (Thorazine Tab*) 400 mg G TUBE BEDTIME [facility] Last Admin: 01/13/17 20:32 Dose: 400 mg Piperacillin Sod/Tazobactam Sod (Zosyn 3.375 Gm In Ns Premix*) 3.375 gm in 100 mls @ 25 mls/hr IVPB Q8H [facility] Last Admin: 01/14/17 08:14 Dose: 25 mls/hr Sodium Chloride (Ns 0.9% 1000 Ml*) 1,000 mls @ 100 mls/hr IV PER RATE [facility] Last Admin: 01/13/17 19:52 Dose: 100 mls/hr Vancomycin HCl 1,000 mg/ (Sodium Chloride) 250 mls @ 166.667 mls/hr IVPB Q8H [facility] Last Admin: 01/14/17 05:09 Dose: 166.667 mls/hr Magnesium Hydroxide (Milk Of Magnsveta Liq*) 30 ml PEG TUBE 0900 PRN PRN Reason: CONSTIPATION Last Admin: 01/13/17 10:00 Dose: 30 ml Morphine Sulfate (Morphine Inj (Syringe)*) 4 mg IV Q2H PRN PRN Reason: Pain/Respiratory distress Last Admin: 01/14/17 09:54 Dose: 4 mg Mupirocin (Bactroban 2% Cream*) 1 applic TOPICAL BID PRN PRN Reason: WOUND CARE Last Admin: 01/13/17 10:01 Dose: 1 applic Non-Formulary Medication (Protein [Resource Beneprotein]) 1 dose G TUBE TID [facility] Last Admin: 01/14/17 07:50 Dose: 1 dose Non-Formulary Medication (Nutritional Supplements [Jevity 1.5 Fletcher]) 1 can G TUBE QPM@1999 [facility] Last Admin: 01/13/17 20:32 Dose: 1 can Non-Formulary Medication (Nutritional Supplements [Jevity 1.5 Fletcher]) 2 liq G TUBE 0800,1400 [facility] Last Admin: 01/14/17 07:52 Dose: 2 liq Olanzapine (Zyprexa * Tab Odt) 5 mg .SEE ORDER QA [facility] Last Admin: 01/14/17 07:52 Dose: 5 mg Olanzapine (Zyprexa *Odt*) 10 mg .SEE ORDER 1999 [facility] Last Admin: 01/13/17 20:32 Dose: 10 mg Pharmacy Consult (Vancomycin Per Pharmacy*) 1 note FOLLOW UP .VANC PER PHARMACY [facility] Pharmacy Profile Note (Vancomycin Trough Check) 1 note FOLLOW UP 1230 ONE Stop: 01/14/17 12:31 Polyethylene Glycol/Electrolytes (Miralax*) 34 gm PO DAILY [facility] Last Admin: 01/14/17 08:15 Dose: 34 gm Rivaroxaban (Xarelto (*)) 20 mg PO DAILY [facility] Last Admin: 01/14/17 07:52 Dose: 20 mg Saliva Substitute (Biotene Moisturizing Mouth (Nf)) 1 spray MT 0800 [facility] Last Admin: 01/14/17 07:53 Dose: 1 spray Simethicone (Mylicon Drops Oral.Syr*) 80 mg PO AC [facility] Last Admin: 01/14/17 07:45 Dose: 80 mg Sodium Biphosphate/Sodium Phosphate (Fleet Enema*) 1 bottle MN .SEE INSTRUCTIONS PRN PRN Reason: CONSTIPATION Valproic Acid (Depakene Liq(*)) 500 mg G TUBE TID [facility] Last Admin: 01/14/17 07:53 Dose: 500 mg Zinc Oxide (Noah's Butt Paste) 1 applic TOPICAL TID PRN PRN Reason: RASH Last Admin: 01/13/17 10:01 Dose: 1 applic Vital Signs 01/13/17 01/13/17 01/13/17 11:00 11:20 11:30 Temperature Pulse Rate 102 100 100 Respiratory 26 24 23 Rate Blood Pressure 114/52 101/55 (mmHg) O2 Sat by Pulse 100 99 99 Oximetry 01/13/17 01/13/17 01/13/17 11:50 11:57 12:00 Temperature 99.2 F Pulse Rate 102 Respiratory 22 22 Rate Blood Pressure 119/54 (mmHg) O2 Sat by Pulse 99 Oximetry 01/13/17 01/13/17 01/13/17 13:00 13:51 14:00 Temperature Pulse Rate 105 107 107 Respiratory 23 26 27 Rate Blood Pressure 101/45 120/46 (mmHg) O2 Sat by Pulse 99 99 99 Oximetry 01/13/17 01/13/17 01/13/17 15:00 15:55 16:00 Temperature 100.7 F Pulse Rate 109 108 Respiratory 28 27 Rate Blood Pressure 112/47 99/45 (mmHg) O2 Sat by Pulse 99 99 Oximetry 01/13/17 01/13/17 01/13/17 16:43 17:00 18:00 Temperature Pulse Rate 106 105 101 Respiratory 33 31 28 Rate Blood Pressure 102/42 94/39 98/42 (mmHg) O2 Sat by Pulse 97 97 97 Oximetry 01/13/17 01/13/17 01/13/17 19:00 19:39 19:48 Temperature 99.5 F Pulse Rate 100 97 Respiratory 26 27 Rate Blood Pressure 89/44 106/43 (mmHg) O2 Sat by Pulse 97 97 Oximetry 01/13/17 01/13/17 01/13/17 19:55 20:00 20:05 Temperature Pulse Rate 101 Respiratory 29 40 40 Rate Blood Pressure 115/40 (mmHg) O2 Sat by Pulse 89 Oximetry 01/13/17 01/13/17 01/13/17 20:17 21:00 22:00 Temperature Pulse Rate 105 102 102 Respiratory 50 30 32 Rate Blood Pressure 106/45 114/40 (mmHg) O2 Sat by Pulse 90 94 94 Oximetry 01/13/17 01/13/17 01/13/17 22:37 22:44 23:00 Temperature Pulse Rate 106 101 Respiratory 50 46 35 Rate Blood Pressure 118/51 109/39 (mmHg) O2 Sat by Pulse 93 93 Oximetry 01/13/17 01/14/17 01/14/17 23:59 00:00 00:01 Temperature 98.6 F Pulse Rate 102 102 Respiratory 28 28 28 Rate Blood Pressure 101/38 (mmHg) O2 Sat by Pulse 94 94 Oximetry 01/14/17 01/14/17 01/14/17 00:06 01:00 02:00 Temperature Pulse Rate 101 103 Respiratory 27 27 26 Rate Blood Pressure 105/39 98/40 (mmHg) O2 Sat by Pulse 94 94 Oximetry 01/14/17 01/14/17 01/14/17 03:00 03:38 03:48 Temperature 100.9 F Pulse Rate 102 Respiratory 26 25 Rate Blood Pressure 99/40 (mmHg) O2 Sat by Pulse 94 Oximetry 01/14/17 01/14/17 01/14/17 04:00 05:00 05:49 Temperature Pulse Rate 102 99 Respiratory 25 24 24 Rate Blood Pressure 93/40 103/40 (mmHg) O2 Sat by Pulse 94 95 Oximetry 01/14/17 01/14/17 01/14/17 06:00 07:00 07:23 Temperature Pulse Rate 96 95 90 Respiratory 24 32 20 Rate Blood Pressure 95/45 103/41 (mmHg) O2 Sat by Pulse 96 97 98 Oximetry 01/14/17 01/14/17 01/14/17 07:35 08:00 09:00 Temperature 98.1 F 98.1 F Pulse Rate 94 98 Respiratory 24 35 Rate Blood Pressure 94/41 110/44 (mmHg) O2 Sat by Pulse 97 95 Oximetry 01/14/17 01/14/17 09:54 10:00 Temperature Pulse Rate 104 Respiratory 38 46 Rate Blood Pressure 104/44 (mmHg) O2 Sat by Pulse 92 Oximetry Oxygen Devices in Use Now: High Flow Nasal Cannula - 40% Appearance: 30 deg in bed, accessory muscle of respiration but not in distress Eyes: No Scleral Icterus, PERRLA Ears/Nose/Mouth/Throat: - - dry MM Neck: NL Appearance and Movements; NL JVP, Trachea Midline Respiratory: Symmetrical Chest Expansion and Respiratory Effort, - - rhonchi on right, decreased on left Cardiovascular: RRR, - - tachy Abdominal: - - soft, distended, NTTP, +bs Lymphatic: No Cervical Adenopathy Extremities: - - 1+ LE edema Skin: No Rash or Ulcers Neurological: - - AOx0 Result Diagrams: 01/14/17 05:40 01/14/17 05:40 Additional Lab and Data: Lab Results 01/13/17 01/13/17 01/13/17 Range/Units 03:41 03:41 03:41 WBC 4.7 (3.5-10.8) 10^3/ul RBC 3.49 L (4.0-5.4) 10^6/ul Hgb 10.0 L (14.0-18.0) g/dl Hct 31 L (42-52) % MCV 88 (80-94) fL MCH 29 (27-31) pg MCHC 32 (31-36) g/dl RDW 15 (10.5-15) % Plt Count 148 L (150-450) 10^3/ul MPV 9 (7.4-10.4) um3 Neut % (Auto) 70.7 (38-83) % Lymph % (Auto) 13.0 L (25-47) % [place] % (Auto) 15.5 H (1-9) % Eos % (Auto) 0.7 (0-6) % Baso % (Auto) 0.1 (0-2) % Absolute Neuts (auto) 3.3 (1.5-7.7) 10^3/ul Absolute Lymphs (auto) 0.6 L (1.0-4.8) 10^3/ul Absolute Monos (auto) 0.7 (0-0.8) 10^3/ul Absolute Eos (auto) 0 (0-0.6) 10^3/ul Absolute Basos (auto) 0 (0-0.2) 10^3/ul Absolute Nucleated RBC 0.01 10^3/ul Nucleated RBC % 0.1 Sodium 136 (133-145) mmol/L Potassium 3.9 (3.5-5.0) mmol/L Chloride 95 L (101-111) mmol/L Carbon Dioxide 32 (22-32) mmol/L Anion Gap 9 (2-11) mmol/L BUN 13 (6-24) mg/dL Creatinine 0.40 L (0.67-1.17) mg/dL Est GFR ( Amer) 285.2 (>60) Est GFR (Non-Af Amer) 221.7 (>60) BUN/Creatinine Ratio 32.5 H (8-20) Glucose 124 H (70-100) mg/dL Lactic Acid 3.2 H* (0.5-2.0) mmol/L Calcium 9.6 (8.6-10.3) mg/dL Total Bilirubin 0.40 (0.2-1.0) mg/dL AST 21 (13-39) U/L ALT 17 (7-52) U/L Alkaline Phosphatase 91 (34-104) U/L Troponin I 0.01 (<0.04) ng/mL Total Protein 8.2 (6.4-8.9) g/dL Albumin 3.7 (3.2-5.2) g/dL Globulin 4.5 H (2-4) g/dL Albumin/Globulin Ratio 0.8 L (1-3) Microbiology and Other Data: Microbiology 01/13/17 08:00 Influenza Types A,B Antigen (MICHELLE) - Final Nasal Specimen received for Influenza A/B Molecular testing Assess/Plan/Problems-Billing Assessment: 56 yo M h/o severe intellectual disability, rivas's syndrome, recurrent aspiration events with multiple hospital stays for respiratory failure returning with hypoxic respiratory failure - Patient Problems (1) Acute respiratory failure with hypoxia Comment: Suspect recurrent aspiration event with high fevers Sepsis is present on admission c/w zosyn and vancomycin day 2 Normal saline 1 L at 125 cc c/w Vapotherm. Can transition to BiPAP if any decompensation although poor candidate given mental status and recurrent aspiration HOB elevated Pt is DNR/I but can accept all therapies excluding intubation for respiratory failure (2) Rivas's syndrome Comment: Stable On aggressive outpatient bowel regimen. 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 (4) Psychosis Comment: c/w zyprexa, and depakote (5) DNR (do not resuscitate)
[2017-01-14] MEDS ORDERED: Vancomycin Trough Check NOTE FOLLOW UP ONE (12:30)
[2017-01-14 16:38] LABS: Hematocrit 26 % (42-52); Hemoglobin 8.4 g/dl (14.0-18.0)
[2017-01-14] MEDS: Acetaminophen ADULT LIQ* 650 MG/20.3 ML UDC PO PRN ×2 (17:35→23:01)
[2017-01-14] MEDS: chlorproMAZINE TAB* 200 MG G TUBE SCH (20:05)
[2017-01-14] MEDS: OLANzapine TAB*ODT* 10 MG TAB SCH (20:06)
[2017-01-14] MEDS: NS 0.9% 1000 ML* 1,000 ML IV SCH (23:22)
[2017-01-15] MEDS: Piperac/Tazob 3.375 gm in NS* 3.375 GM/100 ML BAG IVPB SCH ×3 (01:10→17:28)
[2017-01-15] MEDS: Albuterol/Ipratropium NEB.SOL* Albuterol 2.5 MG/Ipratropium 0.5 MG 3 ML INH SCH ×3 (01:13→13:51)
[2017-01-15] MEDS: Vancomycin(*) 1,000 MG in NS 0.9% 250 ML* 250 ML IVPB SCH ×3 (01:25→15:15)
[2017-01-15] MEDS: Morphine INJ* 4 MG/ML 1 ML SYRINGE IV PRN ×4 (01:53→15:15)
[2017-01-15] MEDS: SIMETHICONE 40 MG/0.6 ML PO SCH ×3 (07:29→16:57)
[2017-01-15] MEDS: SALIVA SUBSTITUTE MT SCH (07:32)
[2017-01-15] MEDS: NUTRITIONAL SUPPLEMENTS G TUBE SCH ×2 (07:32→13:21)
[2017-01-15] MEDS: Polyethylene Glycol 3350* 17 GM PACKET PO SCH (07:33)
[2017-01-15] MEDS: OLANzapine TAB*ODT* 5 MG SCH (07:33)
[2017-01-15] MEDS: Calcium Carbonate LIQ* 1,250 MG/5 ML UDC G TUBE SCH (07:33)
[2017-01-15] MEDS: Valproic Acid LIQ(*) 250 MG/5 ML UDC G TUBE SCH ×2 (07:33→13:20)
[2017-01-15] MEDS: Rivaroxaban TAB(*) 20 MG TAB PO SCH (07:34)
[2017-01-15] MEDS: Cetirizine* 10 MG TAB PO SCH (07:34)
[2017-01-15] MEDS: Benztropine TAB* 1 MG PO SCH (07:34)
[2017-01-15] MEDS: Ascorbic Acid TAB* 500 MG G TUBE SCH (07:34)
[2017-01-15] MEDS: PROTEIN G TUBE SCH ×2 (07:35→13:21)
[2017-01-15] MEDS ORDERED: Vancomycin Trough Check NOTE FOLLOW UP ONE (13:30)
[2017-01-15 17:28] VITALS: BP 62/37
--- NOTE | 2017-01-16 04:46 | DS ---
NOTE: DATE OF ADMISSION: 01/13/17 DATE OF : 01/15/17 PRIMARY CARE PROVIDER: Dr. Easton Dooley. PRIMARY DIAGNOSIS: Hypoxic respiratory failure in the setting of aspiration pneumonia. HISTORY OF PRESENT ILLNESS AND HOSPITAL COURSE: This was a 56-year-old man with severe intellectual disability with underlying chronic lung disease in the setting of recurrent episodes of aspiration pneumonia, who presented to the hospital with hypoxic respiratory failure requiring Vapotherm. He was treated with broad-spectrum antibiotics, IV fluids, and continued on Vapotherm; however , his oxygenation and ventilation continued to worsen. He was treated with morphine for severe respiratory distress, however. He was maintained 100% oxygenation at 100% oxygen with 30 L flow; however, this evening rapidly became hypoxic to the 60s with hypotension and bradycardia. A trial of BiPAP was not used secondary to the patient's lethargy, inability to work properly with the BiPAP. In either case, there was a very low suspicion that BiPAP _would aid___ _ in this chronic progressive illness with acute decompensation in the setting of infection or possibly aspiration pneumonitis. The patient had multiple care providers from [facility] at his bedside at the time of his worsening and at the time of his demise. [facility] was contacted in order to reach Opal Hair, [facility]. All questions were answered for available staff. The patient was comfortable at the time of his . CC: Dr. Dooley* [id number]/CPS #: [id number] MTDD
== END 2017-01-15 17:07 | disposition expired | DRG 871 ==
LOC: ED 03:36 → ICU 07:05
PROVIDERS: ADMIT Internal Medicine; ATTEND Internal Medicine
DX: A41.9 Sepsis, unspecified organism (principal); J69.0 Pneumonitis due to inhalation of food and vomit; J96.21 Acute and chronic respiratory failure with hypoxia; K56.60 Unspecified intestinal obstruction; I95.9 Hypotension, unspecified; F72 Severe intellectual disabilities; Z99.81 Dependence on supplemental oxygen; R13.10 Dysphagia, unspecified; J98.11 Atelectasis; R65.20 Severe sepsis without septic shock; K21.9 Gastro-esophageal reflux disease without esophagitis; F41.9 Anxiety disorder, unspecified; F29 Unspecified psychosis not due to a substance or known physiological condition; J44.9 Chronic obstructive pulmonary disease, unspecified; Z66 Do not resuscitate; K59.09 Other constipation; D64.9 Anemia, unspecified; R00.1 Bradycardia, unspecified; Z81.0 Family history of intellectual disabilities; Z93.1 Gastrostomy status; Z88.1 Allergy status to other antibiotic agents; Z86.718 Personal history of other venous thrombosis and embolism
CPT/HCPCS: 36415; 71010; 80048; 80053; 80202; 83605; 84484; 85014; 85018; 85025; 86713; 87040; 87070; 87077; 87186; 87205; 87502; 87899; 94640; 94668; 94760; A9270-GY; J2270; J2543; J3370